=== PATIENT | female | born 1940 | race Caucasian/White ===

== ENCOUNTER → 2016-10-28 | Outpatient (CLI) | payer MEDICARE ==
[~2016-10-28] MED LIST: CALC600T21 PO; DETR1TAB4 PO; DORZ2SOL5 OP; FISH1000 PO; GLUC15002 PO; ROPI2TAB PO; VITA50003 PO; VITATAB22 PO
--- NOTE | 2016-10-28 17:35 | REPMRS ---
Patient History The patient states she has not had a clinical breast exam in over a year. Patient is postmenopausal. Family history of colorectal cancer in mother at age 59 and pancreatic cancer in mother. Digital Woman Screen Mammo: October 28, 2016 - Exam #: [id number] Bilateral CC and MLO view(s) were taken. Technologist: Nandini Bird, Technologist Prior study comparison: October 20, 2015, digital woman screen mammo performed at [facility] to [facility]. October 10, 2014, digital woman screen mammo performed at [facility]. October 07, 2013, digital woman screen mammo performed at [facility] to [facility]. FINDINGS: There are scattered fibroglandular densities. There has been no change in the appearance of the mammogram from the prior studies. There is a mild amount of scattered fibroglandular density which is fairly symmetric. There is no interval development of dominant mass, architectural distortion, or clustered microcalcification suggestive of malignancy. ASSESSMENT: BI-RADS/ACR category 1 mammogram. Negative. Recommendation Routine screening mammogram in 1 year (for women over age 40). This mammogram was interpreted with the aid of an FDA-approved computer-aided dectection system. Electronically Signed By: Fracisco Kat MD 10/28/16 [id number]
== END ==
LOC: M WHC 12:52
PROVIDERS: ATTEND Family Medicine
DX: Z12.31 Encounter for screening mammogram for malignant neoplasm of breast (principal)

== ENCOUNTER → 2017-04-03 | Outpatient (CLI) | payer MEDICARE ==
[~2017-04-03] MED LIST changes: -CALC600T21 PO; +CALC600T60 PO; +VITA1CAP40 PO; -VITA50003 PO
--- NOTE | 2017-04-04 09:10 | DEXA ---
AP SPINE L1 - L4 1.193 0.0 1.8 LT FEMUR TOTAL 0.827 -1.4 0.5 RT FEMUR TOTAL 0.859 -1.2 0.7 TOTAL BODY TOTAL OTHER DUAL FEMUR FRAX* ASSESSMENT Risk factors: Not performed. 10 year probability of fracture Major osteoporotic fracture % Hip fracture % COMMENTS: Normal bone densitometry of the spine. There is low bone density of the hips. The density of the spine has increased 4.1% since the initial exam on 2000. The spine density has increased 2.5% since the most recent exam on 10/07/2013. The density of the left hip has decreased 16.6% since the initial exam on 2000. The density of the left hip has decreased 0.7% since the most recent exam on . The density of the right hip has decreased 12.7% since the initial exam on 10/23. The density of the right hip has decreased 0.5% since the most recent exam on . FOLLOW-UP: Recommendation for the next bone density exam: 2 years. JUNIORD
== END ==
LOC: M WHC 08:56
PROVIDERS: ATTEND Family Medicine
DX: M85.80 Other specified disorders of bone density and structure, unspecified site (principal); M81.0 Age-related osteoporosis without current pathological fracture

== ENCOUNTER → 2017-11-07 | Outpatient (CLI) | payer MEDICARE | LOC: M WHC 14:31 | DX: Z12.31 Encounter for screening mammogram for malignant neoplasm of breast (principal) | CPT/HCPCS: 77067 ==

== ENCOUNTER → 2018-12-13 | Outpatient (CLI) | payer MEDICARE ==
[~2018-12-13] MED LIST changes: -DETR1TAB4 PO; +DETR1TAB5 PO; -VITA1CAP40 PO; +VITA50005 PO
--- NOTE | 2018-12-13 09:21 | REPMRS ---
Patient History The patient states she has not had a clinical breast exam in over a year. Family history of pancreatic cancer and colorectal cancer at age 59 in mother. 3D TOMOSYNTHESIS WAS PERFORMED. Digital Woman Screen Mammo: December 13, 2018 - Exam #: [id number] Bilateral CC and MLO view(s) were taken. Technologist: Cherry Sher, Technologist Prior study comparison: November 07, 2017, digital woman screen mammo performed at [facility]. October 28, 2016, digital woman screen mammo performed at [facility] to [facility]. FINDINGS: There are scattered fibroglandular densities. There has been no change in the appearance of the mammogram from the prior studies. There is a mild amount of residual fibroglandular tissue which is fairly symmetric. There is no interval development of dominant mass, architectural distortion, or clustered microcalcification suggestive of malignancy. Assessment: BI-RADS/ACR category 1 mammogram. Negative Mammogram. Recommendation Routine screening mammogram in 1 year (for women over age 40). This mammogram was interpreted with the aid of an FDA-approved computer-aided dectection system. Electronically Signed By: yCrus Dhaliwal MD 12/13/18 [id number]
== END ==
LOC: M WHC 06:46
PROVIDERS: ATTEND Family Medicine
DX: Z12.31 Encounter for screening mammogram for malignant neoplasm of breast (principal)

== ENCOUNTER 2019-03-10 19:46 | Observation (INO) | payer MEDICARE ==
[~2019-03-10] VITALS: Ht 152.4 cm; Wt 57.5 kg
[2019-03-10 20:10] LABS: BASO % 0.6 % (0.0-1.0); EOS # 0.2 10^3/uL (0.0-0.50); EOS % 2.2 % (0.0-3.0); HEMATOCRIT 45.3 % (36.0-47.0); HEMOGLOBIN 15.1 g/dl (12.0-15.5); LYMPH # 1.9 10^3/uL (1.5-4.5); LYMPH % 26.3 % (24.0-44.0); MEAN CORPUSCULAR HEMOGLOBIN 34.6 pg (27.0-33.0); MEAN CORPUSCULAR HGB CONC 33.3 g/dl (32.0-36.5); MEAN CORPUSCULAR VOLUME 103.7 fl (80.0-96.0); MONO # 0.6 10^3/uL (0.0-0.8); MONO % 7.9 % (0.0-5.0); NEUTROPHILS # 4.5 10^3/uL (1.8-7.7); NEUTROPHILS % 62.7 % (36.0-66.0); PLATELET COUNT, AUTOMATED 156 10^3/uL (150-450); RED BLOOD COUNT 4.37 10^6/uL (4.00-5.40); WHITE BLOOD COUNT 7.2 10^3/uL (4.0-10.0)
[2019-03-10 20:20] LABS: INR 0.93; PROTHROMBIN TIME 12.2 SECONDS (11.8-14.0)
[2019-03-10 20:33] LABS: BLOOD UREA NITROGEN 20 MG/DL (7-18); CALCIUM LEVEL 8.6 MG/DL (8.8-10.2); CARBON DIOXIDE LEVEL 27 MEQ/L (21-32); CHLORIDE LEVEL 106 MEQ/L (98-107); CK-MB VALUE MASS 7.9 NG/ML (<3.6); CPK CREATINE PHOSPHOKINASE 146 U/L (26-192); CREATININE FOR GFR 0.79 MG/DL (0.55-1.30); GLOMERULAR FILTRATION RATE > 60.0 (>32); GLUCOSE, FASTING 99 MG/DL (70-100); MB/CK RELATIVE INDEX 5.41 (< OR =4); POTASSIUM SERUM 4.1 MEQ/L (3.5-5.1); SODIUM LEVEL 141 MEQ/L (136-145); TROPONIN I < 0.02 NG/ML (< 0.10)
[2019-03-10] MEDS: LATANOPROST 0.005% OPHTH SOLN 2.5 ML OU SCH (21:00)
[2019-03-10 21:12] LABS: ALBUMIN 3.7 GM/DL (3.2-5.2); ALT/SGPT 39 U/L (12-78); BILIRUBIN,DIRECT 0.3 MG/DL (0.0-0.2); C REACTIVE PROTEIN QUANTITATIV < 0.30 MG/DL (0.00-0.30); ETHYL ALCOHOL (ETHANOL) 0.153 % (0.000-0.010); MAGNESIUM LEVEL 2.3 MG/DL (1.8-2.4); TOTAL PROTEIN 6.9 GM/DL (6.4-8.2)
--- NOTE | 2019-03-10 21:54 | REPVR ---
EXAM: CT Head Without Contrast EXAM DATE/TIME: 03/10/2019 8:49 PM CLINICAL HISTORY: 78 years old, female; Syncope and collapse; Additional info: Syncope, fall TECHNIQUE: Imaging protocol: Computed tomography images of the head without contrast. Radiation optimization: All CT scans at this facility use at least one of these dose optimization techniques: automated exposure control; mA and/or kV adjustment per patient size (includes targeted exams where dose is matched to clinical indication); or iterative reconstruction. COMPARISON: No relevant prior studies available. FINDINGS: Brain: No acute intracranial hemorrhage or mass effect. No discrete geographic area of hypoattenuation to suggest large vessel territorial infarct identified at this time. Mild to moderate generalized involutional and deep white matter microvascular ischemic changes. Cerebrovascular calcifications noted. Ventricles: Mild prominence of the ventricular system appears in proportion to the degree of volume loss. Bones/joints: No acute fracture. Sinuses: No fluid levels. Mastoid air cells: No mastoid effusion. Soft tissues: Unremarkable. IMPRESSION: No acute intracranial hemorrhage, mass effect or evidence of large vessel territorial infarction. Other chronic appearing changes as above. Electronically signed by: Guru Ahmadi On 03/10/2019 21:54:03 PM
--- NOTE | 2019-03-10 22:00 | REPVR ---
EXAM: CT Cervical Spine Without Contrast EXAM DATE/TIME: 03/10/2019 8:49 PM CLINICAL HISTORY: 78 years old, female; Other: Syncope; Additional info: Syncope, fall TECHNIQUE: Imaging protocol: Computed tomography images of the cervical spine without contrast. Coronal and sagittal reformatted images were created and reviewed. Radiation optimization: All CT scans at this facility use at least one of these dose optimization techniques: automated exposure control; mA and/or kV adjustment per patient size (includes targeted exams where dose is matched to clinical indication); or iterative reconstruction. COMPARISON: No relevant prior studies available. FINDINGS: Vertebrae: No grossly displaced fractures or subluxations. Advanced multilevel degenerative changes characterized by varying degrees of disc space narrowing/desiccation, endplate osteophytosis and facet hypertrophy. This is most predominant at C5-C6 where there is near complete vertebral body fusion. Discs/Spinal canal/Neural foramina: Narrowing of the bony spinal canal at C5-C6 and C6-C7 due to disc osteophyte complex formation. Soft tissues: Unremarkable. Lungs: Emphysematous changes bilaterally. IMPRESSION: No grossly displaced fractures or subluxations. Advanced multilevel degenerative changes. Electronically signed by: Guru Ahmadi On 03/10/2019 22:00:38 PM
--- NOTE | 2019-03-10 22:28 | HPEPDOC ---
[facility] Medical History & Physical Date of Admission Mar 10, 2019 Date of Service: Mar 10, 2019 Primary Care Physician: MIGDALIA POZO M.D. Attending Physician: CARLOS SUMNER MD History and Physical TIME OF SERVICE: Time of service 10:45 PM CHIEF COMPLAINT: Fall HISTORY OF PRESENT ILLNESS: This is a 78-year-old female who presents after falling and passing out at around 6 PM this evening. She just finished cooking dinner and was getting ready to eat. Prior to that, she only ate breakfast and had a busy day running several errands. She is not sure if she hit her head when she fell, and is not sure how long she lost consciousness for. She denies having prodromal chest pain, denies having dyspnea, denies feeling dizzy, denies having fevers, denies having chills, denies having abdominal pain, denies having urinary frequency, and denies having urinary incontinence. Her only complaint was of left arm pain. During the physical exam she reported feeling dizzy, her blood pressure was 59/37. Per Dr. Anne orthostats were negative, and Imaging studies so far were were only remarkable for a fractured the left clavicle. 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 Denies a personal history of diabetes, CVA, or hypertension SOCIAL HISTORY: Denies Smoking Drinks alcohol occasionally FAMILY HISTORY: Colon cancer. Pancreatic cancer Hypertension ALLERGIES: Please see below. HOME MEDICATIONS: Please see below. PHYSICAL EXAMINATION: VITAL SIGNS: Please see below. GENERAL APPEARANCE: Well-nourished, well-developed, not in apparent distress HEENT: Normocephalic, atraumatic, mucous members moist and pink CARDIOVASCULAR: Regular rate and rhythm. No murmurs, rubs or gallops LUNGS: Good auscultation bilaterally on room air ABDOMEN: Hypoactive bowel sounds, soft and nontender on palpation MUSCULOSKELETAL: Age of motion intact in all 3 extremities , the left arm is in a sling NEUROLOGICAL: Cranial nerves II-12 are grossly intact. Speech is not dysarthric PSYCHIATRIC: Alert and oriented to person, place and time, able to understand a nd follow commands LABORATORY DATA: See below. IMAGING: CT of the head unremarkable. CT of the cervical spine unremarkable. Chest x-ray report pending... Shoulder x-ray report pending MICROBIOLOGY: Please see below. ASSESSMENT: Zaida is an 78-year-old female the past medical history of [place] Shafer syndrome, restless leg syndrome and overactive bladder who will be admitted for evaluation of syncope. PLAN: 1. Syncope Likely multifactorial due to drinking ethanol, and dehydration in the setting of not eating or drinking fluids during the day. Orthostats done the ED were negative, but during the exam the patient reported feeling dizzy at the time her blood pressure was 59/37 (this was repeated 2x) w a HR in the 50s. Prior to that her blood pressure was 175/77. Troponin and CT head unrevealing Plan: Admit to medical floor/Telemetry / 1.5 L NS bolus right now / follow-up orthostats every 4H /follow-up MRI of the brain and carotid US /fall precautions 2. Closed fracture of the left clavicle. Plan: Sling/Tylenol for pain control. 4 Uncontrolled hypertension Plan: Follow-up vitals of still elevated, will start amlodipine 5. Restless leg syndrome Plan: continue home meds DVT prophylaxis with SDCs Disposition pending clinical course Vital Signs Vital Signs Date Time Temp Pulse Resp B/P (MAP) Pulse Ox O2 Delivery O2 Flow Rate FiO2 03/10/19 21:19 68 18 163/77 (105) 99 Room Air 03/10/19 19:54 96.0 Laboratory Data Labs 24H Laboratory Tests 2 03/10/19 20:02: Immature Granulocyte % (Auto) 0.3, White Blood Count 7.2, Red Blood Count 4.37, Hemoglobin 15.1, Hematocrit 45.3, Mean Corpuscular Volume 103.7H, Mean Corpuscular Hemoglobin 34.6H, Mean Corpuscular Hemoglobin Concent 33.3, Red Cell Distribution Width 12.1, Platelet Count 156, Neutrophils (%) (Auto) 62.7, Lymphocytes (%) (Auto) 26.3, Monocytes (%) (Auto) 7.9H, Eosinophils (%) (Auto) 2.2, Basophils (%) (Auto) 0.6, Neutrophils # (Auto) 4.5, Lymphocytes # (Auto) 1.9, Monocytes # (Auto) 0.6, Eosinophils # (Auto) 0.2, Basophils # (Auto) 0.0, Nucleated Red Blood Cells % (auto) 0.0, Prothrombin Time 12.2, Prothromb Time International Ratio 0.93, Anion Gap 8, Glomerular Filtration Rate > 60.0, Calcium Level 8.6L, Magnesium Level 2.3, Aspartate Amino Transf (AST/SGOT) 36, Alanine Aminotransferase (ALT/SGPT) 39, Alkaline Phosphatase 79, Total Bilirubin 1.0, Direct Bilirubin 0.3H, Total Creatine Kinase 146, Creatine Kinase MB 7.9H, Creatine Kinase MB Relative Index 5.41H, Troponin I < 0.02, C-Reactive Protein, Quantitative < 0.30, Total Protein 6.9, Albumin 3.7, Albumin/Globulin Ratio 1.16, Thyroid Stimulating Hormone (TSH) 1.820, Ethyl Alcohol Level 0.153H CBC/BMP Laboratory Tests 03/10/19 20:02 Red Blood Count 4.37, Mean Corpuscular Volume 103.7 H, Mean Corpuscular Hemoglobin 34.6 H, Mean Corpuscular Hemoglobin Concent 33.3, Red Cell Distribution Width 12.1, Neutrophils (%) (Auto) 62.7, Lymphocytes (%) (Auto) 26.3, Monocytes (%) (Auto) 7.9 H, Eosinophils (%) (Auto) 2.2, Basophils (%) (Auto) 0.6, Neutrophils # (Auto) 4.5, Lymphocytes # (Auto) 1.9, Monocytes # (Auto) 0.6, Eosinophils # (Auto) 0.2, Basophils # (Auto) 0.0 Home Medications Scheduled Ascorbic Acid (Vitamin C) 100 Mg Tablet, 100 MG PO DAILY Atorvastatin Calcium (Atorvastatin Calcium) 10 Mg Tablet, 10 MG PO 4XWK MONDAY, MONDAY, MONDAY, MONDAY Calcium Citrate/Vitamin D3 (Citracal + D Maximum Caplet) 1 Each Tablet, 1 TAB PO DAILY Dorzolamide HCl/Timolol Maleat (Cosopt Eye Drops) 10 Ml Drops, 1 DROP OU BID Glucosamine/Chondr Boss A Sod (Cidaflex Tablet) 1 Each Tablet, 1 TAB PO DAILY Latanoprost (Xalatan) 0.005% 2.5ML Drops, 1 DROP OU QHS Multivitamin (Multivitamins) 1 Each Capsule, 1 CAP PO DAILY [place]-3S/Dha/Epa/Fish Oil/D3 (Fish Oil-Vit D3 Softgel) 1 Each Capsule, 1 CAP PO DAILY Oxybutynin Chloride (Oxybutynin Chloride) 5 Mg Tablet, 5 MG PO BID Ropinirole HCl (Ropinirole HCl) 2 Mg Tablet, 2 MG PO QPM Ubidecarenone (Co Q-10) 200 Mg Capsule, 200 MG PO QPM Allergies Coded Allergies: No Known Allergies (Unverified , 03/10/19) A-FIB/CHADSVASC A-FIB History Current/History of A-Fib/PAF?: No Current PO Anticoag Therapy: No CARLOS SUMNER MD Mar 10, 2019 22:28
[2019-03-10] MEDS ORDERED: CIDA500T2 PO (22:45)
[2019-03-10] MEDS ORDERED: FISHCAP5 PO (22:45)
[2019-03-10] MEDS ORDERED: ATOR1TAB19 PO (22:45)
[2019-03-10] MEDS ORDERED: XALA0.007 OU (22:45)
[2019-03-10] MEDS ORDERED: IBUPROFEN 400 MG TAB PO ONE (22:45)
[2019-03-10] MEDS ORDERED: CO Q200C10 PO (22:45)
[2019-03-10] MEDS ORDERED: MULTCAP PO (22:45)
[2019-03-10] MEDS ORDERED: ROPI2TAB PO (22:45)
[2019-03-10] MEDS ORDERED: VITA100T59 PO (22:45)
[2019-03-10] MEDS ORDERED: OXYB5TAB10 PO (22:45)
[2019-03-10] MEDS ORDERED: COSO1SOL3 OU (22:45)
[2019-03-10] MEDS ORDERED: CITRTAB18 PO (22:45)
[2019-03-10] MEDS: ACETAMINOPHEN 650MG ER TAB (TYLENOL ARTHRITIS) PO SCH (23:30)
[2019-03-10] MEDS ORDERED: NS 500 ML IV ONE (23:30)
[2019-03-10] MEDS ORDERED: NS 1,000 ML IV ONE (23:30)
--- NOTE | 2019-03-11 02:10 | REPVR ---
EXAM: US Duplex Bilateral Extracranial Arteries EXAM DATE/TIME: 03/11/2019 1:04 AM CLINICAL HISTORY: 78 years old, female; Syncope and collapse TECHNIQUE: Imaging protocol: Real-time Duplex ultrasound scan of the Bilateral carotid and vertebral arteries combining elena scale, color Doppler and spectral waveform analysis. COMPARISON: CT Head without contrast 03/10/2019 8:48 PM FINDINGS: Right common carotid artery: Unremarkable. No occlusion or stenosis. Waveforms are normal. Peak systolic velocity in the right CCA is 179 cm/s. Right internal carotid artery: No occlusion or stenosis. Waveforms are normal. Peak systolic velocity is 56 cm/s. Mild hypoechoic plaque in the carotid bulb. Right ICA/CCA ratio: Within normal limits. 0.31. Right external carotid artery: No stenosis in the origin. Right vertebral artery: Unremarkable. Antegrade flow Left common carotid artery: Unremarkable. No occlusion or stenosis. Waveforms are normal. Peak systolic velocity is 79 m/s. Left internal carotid artery: No occlusion or stenosis. Waveforms are normal. Peak systolic velocity is 50 cm/s. Mild hypoechoic plaque in the carotid bulb. Left ICA/CCA ratio: Within normal limits. 0.63. Left external carotid artery: No stenosis in the origin. Left vertebral artery: Unremarkable. Antegrade flow. IMPRESSION: No carotid arterial stenosis. COMMENT: Carotid Stenosis Reference using SRU criteria: Mild: less than 50% stenosis. ICA PSV is less than 125 cm/second and plaque or intimal thickening is visible. Moderate: 50-69% stenosis. ICA PSV is 125 to 230 cm/second and plaque is visible. Severe: 70-94% stenosis. ICA PSV is more than 230 cm/second and visible plaque and lumen narrowing are seen. Near occlusion: 95-99% stenosis. ICA PSV is variable and significant plaque and luminal narrowing are seen. Occluded: 100% stenosis. No flow identified. Electronically signed by: Zenobia Mackenzie On 03/11/2019 02:09:35 AM
--- NOTE | 2019-03-11 07:01 | REP ---
Left shoulder three views: There is a compression fracture of the distal clavicle with diastases of the fracture fragments. There is no dislocation. Mineralization is normal. There are no calcifications or foreign bodies. Impression: Distal clavicle fracture as described. Electronically Signed by Cyrus Anderson MD 03/11/2019 06:52 A
--- NOTE | 2019-03-11 07:04 | REP ---
Portable chest, 09:10 p.m., single frontal view: There are no comparisons. There are no focal infiltrates. There are no pleural effusions. Lung matute otherwise clear. Cardiac size is upper normal. The david, mediastinum, skeletal structures are unremarkable except for a fracture of the distal left clavicle. Impression: Distal left clavicle fracture, otherwise negative portable chest. Electronically Signed by Cyrus Anderson MD 03/11/2019 06:55 A
[2019-03-11 07:14] LABS: HEMOGLOBIN 14.4 g/dl (12.0-15.5); MEAN CORPUSCULAR HEMOGLOBIN 35.3 pg (27.0-33.0); MEAN CORPUSCULAR HGB CONC 34.3 g/dl (32.0-36.5); MEAN CORPUSCULAR VOLUME 102.9 fl (80.0-96.0); PLATELET COUNT, AUTOMATED 142 10^3/uL (150-450); RED BLOOD COUNT 4.08 10^6/uL (4.00-5.40); WHITE BLOOD COUNT 8.3 10^3/uL (4.0-10.0)
[2019-03-11 07:41] LABS: BLOOD UREA NITROGEN 18 MG/DL (7-18); CALCIUM LEVEL 7.9 MG/DL (8.8-10.2); CARBON DIOXIDE LEVEL 24 MEQ/L (21-32); CHLORIDE LEVEL 108 MEQ/L (98-107); CREATININE FOR GFR 0.81 MG/DL (0.55-1.30); GLOMERULAR FILTRATION RATE > 60.0 (>32); GLUCOSE, FASTING 111 MG/DL (70-100); POTASSIUM SERUM 4.1 MEQ/L (3.5-5.1); SODIUM LEVEL 140 MEQ/L (136-145)
[2019-03-11] MEDS: oxyBUTYnin 5 MG TAB PO SCH ×3 (10:18→21:51)
[2019-03-11] MEDS: COSOPT OCUMETER PLUS 10ML (DORZOLAMIDE/TIMOLOL) OU SCH ×2 (10:18→21:53)
--- NOTE | 2019-03-11 13:30 | REPVR ---
EXAM: MR Angiogram Head Without Contrast, Arteries EXAM DATE/TIME: 03/11/2019 11:24 AM CLINICAL HISTORY: 78 years old, female; Syncope and collapse TECHNIQUE: Imaging protocol: MR angiogram head without contrast. Exam focused on the arteries. COMPARISON: CT Head without contrast 03/10/2019 8:48 PM FINDINGS: Right internal carotid artery: Unremarkable. Intracranial segment is patent with no significant stenosis. No aneurysm. Right anterior cerebral artery: Unremarkable. No occlusion or significant stenosis. No aneurysm. Right middle cerebral artery: Unremarkable. No occlusion or significant stenosis. No aneurysm. Right posterior cerebral artery: Unremarkable. No occlusion or significant stenosis. No aneurysm. Right vertebral artery: Unremarkable. No occlusion or significant stenosis. No aneurysm. Left internal carotid artery: Unremarkable. Intracranial segment is patent with no significant stenosis. No aneurysm. Left anterior cerebral artery: Unremarkable. No occlusion or significant stenosis. No aneurysm. Left middle cerebral artery: Unremarkable. No occlusion or significant stenosis. No aneurysm. Left posterior cerebral artery: Unremarkable. No occlusion or significant stenosis. No aneurysm. Left vertebral artery: Unremarkable. No occlusion or significant stenosis. No aneurysm. Basilar artery: Unremarkable. No occlusion or significant stenosis. No aneurysm. IMPRESSION: No occlusion, significant stenosis or aneurysm identified in the anterior or posterior circulation. Electronically signed by: Rodri Adan On 03/11/2019 13:30:18 PM
[2019-03-11] MEDS: ACETAMINOPHEN 650MG ER TAB (TYLENOL ARTHRITIS) PO SCH (14:56)
[2019-03-11 15:20] VITALS: BP 149/65
[2019-03-11] MEDS: ACETAMINOPHEN TAB 650MG DOSE (2X325MG) PO PRN ×2 (17:39→21:52)
[2019-03-11 18:00] VITALS: BP_SYST 139; BP_SYST 140; BP_SYST 145; BP_DIAS 67; BP_DIAS 72; BP_DIAS 76
[2019-03-11] MEDS ORDERED: ATORVASTATIN 10 MG TAB PO SCH (18:00)
--- NOTE | 2019-03-11 19:43 | IPNPDOC ---
Text Note Date of Service The patient was seen on 03/11/19. NOTE S: patient with no further syncope episodes. she is independent at home and daughter is occupational therapist. Patient states arm sling (not clavicle immobilizer) was making things worse. states no clavicle pain with immobilization, no dizziness no CP. no SOB O: vitals as below = no further hypotensive episodes General: pleasant NAD AAOx3 HRRR LCTA A/P: 1. Syncope Likely multifactorial due to drinking ethanol, and dehydration in the setting of not eating or drinking fluids during the day. Orthostats done the ED were negative, but during the exam the patient reported feeling dizzy at the time her blood pressure was 59/37 (this was repeated 2x) w a HR in the 50s. Prior to that her blood pressure was 175/77. Troponin and CT head unrevealing IVF, negative MRI/MRA 2. Closed fracture of the left clavicle. Plan: Sling/Tylenol for pain control. 3 Uncontrolled hypertension- started amolipine - monitor for hypotension/fall 4. Restless leg syndrome Plan: continue home meds DVT prophylaxis with SCD VS,Fishbone, I+O VS, Fishbone, I+O Laboratory Tests 03/10/19 20:02 Red Blood Count 4.37, Mean Corpuscular Volume 103.7 H, Mean Corpuscular Hemoglobin 34.6 H, Mean Corpuscular Hemoglobin Concent 33.3, Red Cell Distribution Width 12.1, Neutrophils (%) (Auto) 62.7, Lymphocytes (%) (Auto) 26.3, Monocytes (%) (Auto) 7.9 H, Eosinophils (%) (Auto) 2.2, Basophils (%) (Auto) 0.6, Neutrophils # (Auto) 4.5, Lymphocytes # (Auto) 1.9, Monocytes # (Auto) 0.6, Eosinophils # (Auto) 0.2, Basophils # (Auto) 0.0 03/11/19 06:45 Red Blood Count 4.08, Mean Corpuscular Volume 102.9 H, Mean Corpuscular Hemoglobin 35.3 H, Mean Corpuscular Hemoglobin Concent 34.3, Red Cell Distribution Width 12.0, Calcium Level 7.9 L Vital Signs Date Time Temp Pulse Resp B/P (MAP) Pulse Ox O2 Delivery O2 Flow Rate FiO2 03/11/19 18:00 72 140/67 (91) 69 139/72 (94) 80 145/76 (99) 03/11/19 15:20 97.5 15 94 03/11/19 12:46 Room Air 03/11/19 02:59 2.0 I&O- Last 24 Hours up to 6 AM 03/11/19 06:00 Intake Total 1500 ml Output Total 400 ml Balance 1100 ml SUMMER ANDRADE DO Mar 11, 2019 19:43
[2019-03-11] MEDS ORDERED: rOPINIRole 1MG TAB PO SCH (21:00)
[2019-03-11] MEDS: LATANOPROST 0.005% OPHTH SOLN 2.5 ML OU SCH (21:00)
[2019-03-11 22:00] VITALS: BP 145/102
[2019-03-11 22:20] VITALS: BP_SYST 145; BP_SYST 147; BP_SYST 148; BP_DIAS 81; BP_DIAS 83; BP_DIAS 90
[2019-03-12 02:00] VITALS: BP_SYST 118; BP_SYST 123; BP_SYST 142; BP_DIAS 63; BP_DIAS 65; BP_DIAS 70; BP_DIAS 72
[2019-03-12 06:00] VITALS: BP 111/64
[2019-03-12 06:30] VITALS: BP_SYST 141; BP_SYST 142; BP_DIAS 69; BP_DIAS 82
[2019-03-12] MEDS: COSOPT OCUMETER PLUS 10ML (DORZOLAMIDE/TIMOLOL) OU SCH (08:12)
[2019-03-12] MEDS: ACETAMINOPHEN TAB 650MG DOSE (2X325MG) PO PRN (08:12)
[2019-03-12] MEDS: oxyBUTYnin 5 MG TAB PO SCH (08:12)
[2019-03-12 10:00] VITALS: BP_SYST 106; BP_SYST 143; BP_DIAS 59; BP_DIAS 63
--- NOTE | 2019-03-12 10:10 | ECGEPIP ---
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
--- NOTE | 2019-03-12 10:13 | ECGEPIP ---
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
[2019-03-12 11:00] VITALS: BP_SYST 142; BP_SYST 144; BP_SYST 147; BP_DIAS 73; BP_DIAS 74
--- NOTE | 2019-03-12 12:05 | DS.PDOC ---
Discharge Summary General Date of Admission Mar 10, 2019 at 19:47 Date of Discharge 03/12/19 Discharge Summary PROCEDURES PERFORMED DURING STAY: None. ADMITTING DIAGNOSES: 1. Syncope, closed left clavicular fracture DISCHARGE DIAGNOSES: 1. Orthostatic hypotension, both left clavicular fracture COMPLICATIONS/CHIEF COMPLAINT: Closed Left Clavicular Fracture,Syncope. HISTORY OF PRESENT ILLNESS: 78-year-old female the past medical history of Rodolfo Shafer syndrome, restless leg syndrome and overactive bladder who presents after falling and passing out at around 6 PM this evening. She just finished cooking dinner and was getting ready to eat. Prior to that, she only ate breakfast and had a busy day running several errands. She is not sure if she hit her head when she fell, and is not sure how long she lost consciousness for. She denies having prodromal chest pain, denies having dyspnea, denies feeling dizzy, denies having fevers, denies having chills, denies having abdominal pain, denies having urinary frequency, and denies having urinary incontinence. Her only complaint was of left arm pain. During the physical exam she reported feeling dizzy, her blood pressure was 59/37. HOSPITAL COURSE: Patient was admitted for syncope. She was found to have orthostatic hypotension and she was inebriated. Patient underwent MRI of the brain which showed No occlusion, significant stenosis or aneurysm identified in the anterior or posterior circulation. US carotid: No carotid arterial stenosis. CXR showed Distal left clavicle fracture. CT of the cervical spine was negative for any acute fractures. Patient was given IV fluids and her orthostatics were repeated every 6 hours. Patient's blood pressure became normal and she stopped having symptoms off dizziness. Patient walked around without any difficulty. Telemetry was uneventful. She is medically stable to be discharged and follow-up with PCP and orthopedist as an outpatient. Patient was counseled against alcohol abuse, alcohol cessation counseling was also done. Patient verbalized understanding and patient's daughter was present at bedside as well DISCHARGE MEDICATIONS: Please see below. ALLERGIES: Please see below. PHYSICAL EXAMINATION ON DISCHARGE: VITAL SIGNS: Please see below. General - NAD, sitting up in bed, well groomed and in nightgown Eyes - PERRLA, EOM intact Neck - No noticeable or palpable swelling, redness or rash around throat or on face Lymph Nodes - No lymphadenopathy Cardiovascular - RRR no m/r/g, no JVD, no carotid bruits Lungs - Clear to auscltation, no use of acessory muscles, no crackles or wheezes. Skin - No rashes, skin warm and dry, no erythematous areas Abdomen - Normal bowel sounds, abdomen soft and nontender Extremeties - No edema, cyanosis or clubbing Musculo Skeletal - 5/5 strength, normal range of motion, no swollen or erythematous joints. Sling in place for clavicular fracture Neurological Alert and oriented x 3, CN 2-12 grossly intact. LABORATORY DATA: Please see below. IMAGING: PROGNOSIS: ACTIVITY: As tolerated. DIET: DISCHARGE PLAN: DISPOSITION: . DISCHARGE INSTRUCTIONS: 1. . Follow-up with PCP and orthopedist as an outpatient within a week ITEMS TO FOLLOWUP ON ON OUTPATIENT: 1. . DISCHARGE CONDITION: Stable. TIME SPENT ON DISCHARGE: Greater than 33 minutes. Vital Signs/I&Os Vital Signs Date Time Temp Pulse Resp B/P (MAP) Pulse Ox O2 Delivery O2 Flow Rate FiO2 03/12/19 11:00 68 142/74 (96) 61 144/73 (96) 70 147/74 (98) 03/12/19 10:00 97.8 18 93 03/11/19 12:46 Room Air 03/11/19 02:59 2.0 I&O- Last 24 Hours up to 6 AM 03/12/19 06:00 Intake Total 1500 ml Output Total 750 ml Balance 750 ml Discharge Medications Scheduled Ascorbic Acid (Vitamin C) 100 Mg Tablet, 100 MG PO DAILY, (Reported) Atorvastatin Calcium (Atorvastatin Calcium) 10 Mg Tablet, 10 MG PO 4XWK, (Reported) MONDAY, MONDAY, MONDAY, MONDAY Calcium Citrate/Vitamin D3 (Citracal + D Maximum Caplet) 1 Each Tablet, 1 TAB PO DAILY, (Reported) Dorzolamide HCl/Timolol Maleat (Cosopt Eye Drops) 10 Ml Drops, 1 DROP OU BID, (Reported) Glucosamine/Chondr Boss A Sod (Cidaflex Tablet) 1 Each Tablet, 1 TAB PO DAILY, (Reported) Latanoprost (Xalatan) 0.005% 2.5ML Drops, 1 DROP OU QHS, (Reported) Multivitamin (Multivitamins) 1 Each Capsule, 1 CAP PO DAILY, (Reported) Leland-3S/Dha/Epa/Fish Oil/D3 (Fish Oil-Vit D3 Softgel) 1 Each Capsule, 1 CAP PO DAILY, (Reported) Oxybutynin Chloride (Oxybutynin Chloride) 5 Mg Tablet, 5 MG PO BID, (Reported) Ropinirole HCl (Ropinirole HCl) 2 Mg Tablet, 2 MG PO QPM, (Reported) Ubidecarenone (Co Q-10) 200 Mg Capsule, 200 MG PO QPM, (Reported) Allergies Coded Allergies: No Known Allergies (Unverified , 03/10/19) GUNNER LAST MD Mar 12, 2019 12:05
--- NOTE | 2019-03-13 08:38 | ECHO ---
DATE OF STUDY: 03/12/2019 REFERRING PHYSICIAN: Dr. Belinda Mobley and Dr. Blanquita Goldman INDICATION: Syncope HEIGHT: 152 cm WEIGHT: 59 kg DIMENSIONS: IVS: 0.8 LV: 4.5 LVPW: 1.0 LA: 3.7 Aorta: 3.1 Mitral E wave velocity: 56 A wave: 61 E prime septal: 7.3 E prime lateral: 8.2 Left atrial volume index: 22 IVC: 1.9 FINDINGS: This study is of acceptable technical quality. The patient is in sinus rhythm with wide QRS complex. Left ventricle is normal size and has normal contractility, I estimate LVEF around 65-70%. No segmental wall motion abnormalities are appreciated. Right ventricle is normal size and systolic function. Both atria appear normal. All four cardiac valves were reasonably well seen and appear normal. No pericardial effusion is noted. Inferior vena cava is on upper limits of normal size but collapses appropriately with respiration indicative of likely normal central venous pressure. Aortic root, aortic arch and visualized segment of abdominal aorta all appear normal. Doppler interrogation of aortic valve reveals no stenosis and mild insufficiency. There is also mild mitral and tricuspid insufficiency. Calculated pulmonary artery pressure is in 30s corresponding to mild pulmonary hypertension. Trace pulmonic insufficiency is seen. Mitral inflow pattern and tissue Doppler imaging of mitral annulus reveals grade 1 diastolic dysfunction. CONCLUSIONS: 1. Study is of good technical quality. 2. Normal LV size with preserved LV systolic function and grade 1 diastolic dysfunction. 3. No hemodynamically significant valvular disease. 4. Likely normal central venous pressure and mild pulmonary hypertension. COMMENTS: Subacute bacterial endocarditis (SBE) prophylaxis is not recommended. The study does not provide obvious explanation for syncopal event.
== END 2019-03-12 14:06 | disposition home or self-care (01) ==
LOC: M ED 19:46 → EDBD 19:46 → M ED INP 19:47 → M MSPAV 03-11 15:17
PROVIDERS: ADMIT Internal Medicine; ATTEND Hospitalist
DX: R55 Syncope and collapse (principal); E86.0 Dehydration; I95.1 Orthostatic hypotension; S42.002A Fracture of unspecified part of left clavicle, initial encounter for closed fracture; W19.XXXA Unspecified fall, initial encounter; Y92.000 Kitchen of unspecified non-institutional (private) residence as the place of occurrence of the external cause; Y93.G3 Activity, cooking and baking; Y99.9 Unspecified external cause status; F10.10 Alcohol abuse, uncomplicated; Z79.899 Other long term (current) drug therapy; G25.81 Restless legs syndrome; N32.81 Overactive bladder
CPT/HCPCS: 36415; 70450; 70544; 71045; 72125; 73030; 80048; 80076; 82550; 82553; 83735; 84443; 84484; 85025; 85027; 85610; 86140; 93005; 93306; 93880; 96360; 96361; 99285; G0378; G0480

== ENCOUNTER → 2019-08-12 | Outpatient (CLI) | payer MEDICARE ==
[~2019-08-12] MED LIST changes: +ATOR1TAB19 PO; +CIDA500T2 PO; +CITRTAB18 PO; +CO Q200C10 PO; +COSO1SOL3 OU; +FISHCAP5 PO; +MULTCAP PO; +OXYB5TAB10 PO; +VITA100T59 PO; +XALA0.007 OU
== END ==
LOC: M WHC 11:11
PROVIDERS: ATTEND Family Medicine
DX: M81.0 Age-related osteoporosis without current pathological fracture (principal)

== ENCOUNTER → 2020-02-05 | Outpatient (CLI) | payer MEDICARE ==
[~2020-02-05] MED LIST changes: -ROPI2TAB PO; +ROPI2TAB3 PO
--- NOTE | 2020-02-05 10:32 | REPMRS ---
Patient History The patient states she has not had a clinical breast exam in over a year. Family history of pancreatic cancer and colorectal cancer at age 59 in mother. 3D TOMOSYNTHESIS WAS PERFORMED. [facility] for [facility]%. PRAKASH Mahajan. Digital Woman Screen Mammo: February 05, 2020 - Exam #: [id number] Bilateral CC and MLO view(s) were taken. Technologist: Reema Costa, Technologist Prior study comparison: December 13, 2018, bilateral digital woman screen mammo performed at [facility]. November 07, 2017, digital woman screen mammo performed at [facility]. FINDINGS: There are scattered fibroglandular densities. There has been no change in the appearance of the mammogram from the prior studies. There is a mild amount of residual fibroglandular tissue which is fairly symmetric. There is no interval development of dominant mass, architectural distortion, or clustered microcalcification suggestive of malignancy. Assessment: BI-RADS/ACR category 1 mammogram. Negative Mammogram. Recommendation Routine screening mammogram in 1 year (for women over age 40). This mammogram was interpreted with the aid of an FDA-approved computer-aided dectection system. Electronically Signed By: Cyrus Dhaliwal MD 02/05/20 [id number]
== END ==
LOC: M WHC 09:00
PROVIDERS: ATTEND Family Medicine
DX: Z12.31 Encounter for screening mammogram for malignant neoplasm of breast (principal); Z80.0 Family history of malignant neoplasm of digestive organs

== ENCOUNTER 2020-07-17 14:35 | Inpatient (IN) | payer MEDICARE ==
[~2020-07-17] VITALS: Ht 152.4 cm; Wt 58.3 kg
[2020-07-17 15:14] LABS: VENOUS HCO3 27.6 MEQ/L (23.0-27.0); VENOUS O2 SATURATION 58.4 % (60.0-80.0); VENOUS PARTIAL PRESSURE O2 30.9 mmHg (30.0-50.0); VENOUS PH 7.351 UNITS (7.330-7.430); VENOUS STANDARD HCO3 24.2 MEQ/L; VENOUS TOTAL CO2 29.2 MEQ/L (24.0-28.0)
[2020-07-17 15:20] LABS: BASO % 0.1 % (0.0-1.0); EOS % 0.1 % (0.0-3.0); HEMOGLOBIN 15.7 g/dl (12.0-15.5); LYMPH # 0.9 10^3/uL (1.5-5.0); LYMPH % 6.2 % (24.0-44.0); MEAN CORPUSCULAR HEMOGLOBIN 33.2 pg (27.0-33.0); MEAN CORPUSCULAR HGB CONC 32.7 g/dl (32.0-36.5); MEAN CORPUSCULAR VOLUME 101.5 fl (80.0-96.0); MONO # 1.2 10^3/uL (0.0-0.8); MONO % 8.4 % (0.0-5.0); NEUTROPHILS # 12.1 10^3/uL (1.5-8.5); NEUTROPHILS % 84.7 % (36.0-66.0); PLATELET COUNT, AUTOMATED 133 10^3/uL (150-450); RED BLOOD COUNT 4.73 10^6/uL (4.00-5.40); WHITE BLOOD COUNT 14.3 10^3/uL (4.0-10.0)
--- NOTE | 2020-07-17 15:53 | ECGEPIP ---
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
[2020-07-17 15:58] LABS: ALBUMIN 3.4 GM/DL (3.2-5.2); ALT/SGPT 36 U/L (12-78); BILIRUBIN,DIRECT 0.3 MG/DL (0.0-0.2); BILIRUBIN,TOTAL 1.6 MG/DL (0.2-1.0); BLOOD UREA NITROGEN 12 MG/DL (7-18); CALCIUM LEVEL 8.9 MG/DL (8.8-10.2); CARBON DIOXIDE LEVEL 28 MEQ/L (21-32); CHLORIDE LEVEL 107 MEQ/L (98-107); CK-MB VALUE MASS < 1.0 NG/ML (<3.6); CPK CREATINE PHOSPHOKINASE 73 U/L (26-192); CREATININE FOR GFR 0.84 MG/DL (0.55-1.30); GLOMERULAR FILTRATION RATE > 60.0 (>32); GLUCOSE, FASTING 118 MG/DL (70-100); LIPASE 61 U/L (73-393); MB/CK RELATIVE INDEX 1.37 (< OR =4); NT-PRO BNP 1041 PG/ML (<450); POTASSIUM SERUM 4.2 MEQ/L (3.5-5.1); SODIUM LEVEL 141 MEQ/L (136-145); TROPONIN I < 0.02 NG/ML (< 0.10)
[2020-07-17] MEDS ORDERED: ISOVUE-370 76% 100ML VIAL As Ordered ONE (16:48)
--- NOTE | 2020-07-17 17:06 | REP ---
INDICATION: CHEST PAIN COMPARISON: 03/10/2019 TECHNIQUE: Portable AP view of the chest FINDINGS: The mediastinum and cardiac silhouette are stable and within normal limits for portable technique. The lung matute demonstrate chronic changes and trace basilar atelectasis. No focal consolidation, effusion, or pneumothorax. Skeletal structures are intact. IMPRESSION: Chronic changes. Trace basilar atelectasis. <Electronically signed by Subhash Irizarry > 07/17/20 [id number]
--- NOTE | 2020-07-17 17:12 | REP ---
INDICATION: pleuritic CP, elev d-dimer, eval for PE COMPARISON: None. TECHNIQUE: Axial contrast enhanced images from the thoracic inlet to the upper abdomen using pulmonary embolus technique with multiplanar re-formations. 75 ml Isovue 370 intravenous contrast material administered without complication. This CT examination was performed using the following dose reduction techniques: Automated exposure control, adjustment of mA and/or kv according to the patient's size, and use of iterative reconstruction technique. FINDINGS: Satisfactory enhancement of the pulmonary vasculature is achieved and no filling defects are identified to suggest pulmonary embolus. Thoracic aorta demonstrates atherosclerotic changes without aneurysm or dissection. No cardiomegaly or pericardial effusion noted. The lung matute demonstrate chronic interstitial/emphysematous changes along with mild bibasilar atelectasis (left greater than right). No discrete focal consolidation. No adenopathy. No effusion. No pneumothorax. Tracheobronchial tree is patent. IMPRESSION: 1. No evidence for pulmonary embolus. 2. Chronic interstitial changes with mild superimposed basilar atelectasis. <Electronically signed by Subhash Irizarry > 07/17/20 [id number]
[2020-07-17] MEDS: METOPROLOL 5 MG/5 ML VIAL IV SCH ×3 (17:47→18:09)
[2020-07-17] MEDS ORDERED: ASPIRIN 81 MG CHEW TABLET PO ONE (18:15)
[2020-07-17] MEDS ORDERED: NS 500 ML IV ONE ×3 (18:15→20:30)
[2020-07-17] MEDS: ACETAMINOPHEN TAB 650MG DOSE (2X325MG) PO PRN (18:33)
--- NOTE | 2020-07-17 18:44 | ECGEPIP ---
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
[2020-07-17] MEDS ORDERED: NS 1,000 ML IV SCH (18:45)
[2020-07-17] MEDS ORDERED: THERTAB52 PO (18:53)
[2020-07-17] MEDS ORDERED: HEPARIN SOD (PORCINE) 5000UNITS/ML 1ML VIAL/SYRINGE IV ONE (19:00)
[2020-07-17] MEDS ORDERED: HEPARIN SOD (PORCINE) 5000UNITS/ML 1ML VIAL/SYRINGE IV PRN (19:00)
[2020-07-17 20:31] LABS: HEMATOCRIT 46.9 % (36.0-47.0); HEMOGLOBIN 15.1 g/dl (12.0-15.5); MEAN CORPUSCULAR HEMOGLOBIN 33.1 pg (27.0-33.0); MEAN CORPUSCULAR HGB CONC 32.2 g/dl (32.0-36.5); MEAN CORPUSCULAR VOLUME 102.9 fl (80.0-96.0); PLATELET COUNT, AUTOMATED 154 10^3/uL (150-450); RED BLOOD COUNT 4.56 10^6/uL (4.00-5.40); WHITE BLOOD COUNT 14.4 10^3/uL (4.0-10.0)
[2020-07-17] MEDS ORDERED: PIPERACILLIN/TAZOBACTAM SOD 4.5 GM in D5W MINI-BAG PLUS 50 ML IV STA (20:45)
[2020-07-17 21:35] VITALS: BP 98/60
[2020-07-17] MEDS ORDERED: DIGOXIN INJ 0.5 MG/2 ML AMP (J1160) IV SCH (22:00)
[2020-07-17] MEDS: HEPARIN DRIP 25,000 UNITS in IV 1 EA IV SCH (22:34)
[2020-07-17] MEDS ORDERED: PIPERACILLIN/TAZOBACTAM SOD 4.5 GM in D5W MINI-BAG PLUS 50 ML IV ONE (23:00)
[2020-07-17] MEDS: rOPINIRole 1MG TAB PO SCH (23:55)
[2020-07-18] VITALS: BP 92/58
[2020-07-18 04:00] VITALS: BP 104/69
[2020-07-18] MEDS: PIPERACILLIN/TAZOBACTAM SOD 3.375 GM in D5W MINI-BAG PLUS 50 ML IV SCH ×4 (05:18→23:50)
[2020-07-18 06:43] LABS: HEMATOCRIT 42.7 % (36.0-47.0); HEMOGLOBIN 13.6 g/dl (12.0-15.5); MEAN CORPUSCULAR HEMOGLOBIN 32.7 pg (27.0-33.0); MEAN CORPUSCULAR HGB CONC 31.9 g/dl (32.0-36.5); MEAN CORPUSCULAR VOLUME 102.6 fl (80.0-96.0); PLATELET COUNT, AUTOMATED 119 10^3/uL (150-450); RED BLOOD COUNT 4.16 10^6/uL (4.00-5.40); WHITE BLOOD COUNT 9.9 10^3/uL (4.0-10.0)
[2020-07-18 07:17] LABS: BLOOD UREA NITROGEN 11 MG/DL (7-18); CARBON DIOXIDE LEVEL 23 MEQ/L (21-32); CHLORIDE LEVEL 113 MEQ/L (98-107); CREATININE FOR GFR 0.75 MG/DL (0.55-1.30); FERRITIN 1881 NG/ML (8-252); GLOMERULAR FILTRATION RATE > 60.0 (>32); GLUCOSE, FASTING 111 MG/DL (70-100); IRON (FE) 36 UG/DL (50-170); MAGNESIUM LEVEL 2.1 MG/DL (1.8-2.4); PERCENT SATURATION 16.4 % (13.2-45.0); POTASSIUM SERUM 3.9 MEQ/L (3.5-5.1); SODIUM LEVEL 143 MEQ/L (136-145); TOTAL IRON BINDING CAPACITY 220 UG/DL (250-450)
[2020-07-18 08:00] VITALS: BP 111/68
--- NOTE | 2020-07-18 08:08 | HPEPDOC ---
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 She denies prior history of chest pain, a history of heart failure, known CAD or history of LE edema. She also denies any recent fever, chills, new cough, palpitations, abdominal pain, urinary frequency or dysuria. On presentation her vitals were wnl and she was saturating 95% on room air but d ecreased to 88% on ambulation. Work up was notable for leukocytosis to 14.3, Hgb 15.7, platelets 133, Na 141. K 4.2, Cr 0.84, LFTs wnl with a Tbili of 1.6 however, negative troponin, non ischemic EKG in sinus rhythm, elevated proBNP to 1041 and elevated D-dimer to 2599. Given the elevated d-dimer and exertional hypoxemia she had a CTA chest that did not reveal a PE or acute cardiopulmonary pathology showing only chronic interstitial changes while CXR was wnl. Respiratory panel was negative. While in the ED, she was noted to go into rapid Afib and was given metoprolol x 3 tg IV pushes without sustained effects and was switched to dilt 15mg IV x 1 with good effect. She has no history of Afib prior. Given the leukocytosis, rapid Afib I was suspicious of potential infection driving her new onset Afib and will draw BCx, UA with UCx and give her empiric zosyn overnight until infectious workup is complete. REVIEW OF SYSTEMS: 12 point review of systems negative except as listed in HPI PAST MEDICAL/ SURGICAL HISTORY: Restless leg syndrome Rodolfo Shafer syndrome Urinary incontinence/overactive bladder Glaucoma Post-cataract removal Status post total hysterectomy with salpingectomy. Denies a personal history of diabetes, CAD, CHF, CVA, or hypertension SOCIAL HISTORY: Denies Smoking Drinks alcohol occasionally Lives alone. Closest child is in [place]. The rest of her children are out of state. FAMILY HISTORY: Colon cancer. Pancreatic cancer Hypertension ALLERGIES: Please see below. HOME MEDICATIONS: Please see below. PHYSICAL EXAMINATION: VITAL SIGNS: Please see below. GENERAL APPEARANCE: Well-nourished, well-developed, not in apparent distress HEENT: Normocephalic, atraumatic, mucous members moist and pink CARDIOVASCULAR: Irregularly irregular, tachycardic. No murmurs noted LUNGS: Good auscultation bilaterally on room air ABDOMEN: Hypoactive bowel sounds, soft and nontender on palpation MUSCULOSKELETAL: Age of motion intact in all 3 extremities , the left arm is in a sling NEUROLOGICAL: Cranial nerves II-12 are grossly intact. Speech is not dysarthric PSYCHIATRIC: Alert and oriented to person, place and time, able to understand and follow commands LABORATORY DATA: Summarized above IMAGING: summarized above MICROBIOLOGY: Please see below. 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 PLAN: 1. New onset Afib with RVR: precipitant unclear at this time with no history of cardiac disease, no signs of ischemia, no PE, however with leukocytosis c/f infection driving arrythmia activity but structural disease worth investigating as well. -s/p metop x 3 IV pushes without effect -s/p dilt 15 IV x 1 with good effect. So will begin 30 PO Q6H of dilt -Telemetry -Currently getting total 1L NS bolus, and will start 100cc/hr for another 1L -f/u BCx, UA with UCx -empiric zosyn for now given +SIRS -heparin gtt -TTE Leukocytosis, tachycardia - +SIRS -CXR and CTA without acute cardiopulmonary disease noted -respiratory panel was negative -f/u BCx -f/u UA/UCx -will empirically cover with pip/tazo for now until UA and BCx return Restless leg syndrome -continue home ropinirole DVT prophylaxis with SDCs, TEDs and will start heparin gtt Disposition: expect >48hr stay Vital Signs Vital Signs Date Time Temp Pulse Resp B/P (MAP) Pulse Ox O2 Delivery O2 Flow Rate FiO2 07/17/20 14:46 98.4 93 18 161/71 (101) 95 Room Air Laboratory Data Labs 24H Laboratory Tests 2 07/17/20 15:07: D-Dimer, Quantitative 2599.40H, Anion Gap 6L, Glomerular Filtration Rate > 60.0, Calcium Level 8.9, Total Bilirubin 1.6H, Direct Bilirubin 0.3H, Aspartate Amino Transf (AST/SGOT) 35, Alanine Aminotransferase (ALT/SGPT) 36, Alkaline Phosphatase 88, Total Creatine Kinase 73, Creatine Kinase MB < 1.0, Creatine Kinase MB Relative Index 1.37, Troponin I < 0.02, ZU-Rjp-V-Type Natriuretic Peptide 1041H, Total Protein 7.0, Albumin 3.4, Albumin/Globulin Ratio 0.9L, Lipase 61L 07/17/20 15:08: Immature Granulocyte % (Auto) 0.5, Neutrophils (%) (Auto) 84.7H, Lymphocytes (%) (Auto) 6.2L, Monocytes (%) (Auto) 8.4H, Eosinophils (%) (Auto) 0.1, Basophils (%) (Auto) 0.1, Neutrophils # (Auto) 12.1H, Lymphocytes # (Auto) 0.9L, Monocytes # (Auto) 1.2H, Eosinophils # (Auto) 0.0, Basophils # (Auto) 0.0, Nucleated Red Blood Cells % (auto) 0.0, Blood Gas Bicarbonate Standard 24.2, Venous Blood pH 7.351, Venous Blood Partial Pressure CO2 51.0H, Venous Blood Partial Pressure O2 30.9, Venous Blood Total Carbon Dioxide 29.2H, Venous Blood HCO3 27.6H, Venous Blood Oxygen Saturation 58.4L, Venous Blood Base Excess 1.0 CBC/BMP Laboratory Tests 07/17/20 15:07 07/17/20 15:08 Microbiology Microbiology 07/17/20 Respiratory Virus Panel (PCR) (JONES) - Final, Complete 07/17/20 Blood Culture, Received Pending 07/17/20 Blood Culture, Received Pending Home Medications Scheduled Ascorbic Acid (Vitamin C) 100 Mg Tablet, 100 MG PO DAILY Atorvastatin Calcium (Atorvastatin Calcium) 10 Mg Tablet, 10 MG PO 4XWK AT BEDTIME MONDAY, MONDAY, MONDAY, MONDAY Calcium Citrate/Vitamin D3 (Citracal + D Maximum Caplet) 1 Each Tablet, 1 TAB PO DAILY Dorzolamide HCl/Timolol Maleat (Cosopt Eye Drops) 10 Ml Drops, 1 DROP OU BID Glucosamine/Chondr Boss A Sod (Cidaflex Tablet) 1 Each Tablet, 1 TAB PO DAILY Latanoprost (Xalatan) 0.005% 2.5ML Drops, 1 DROP OU QHS Multivitamin,Therapeutic (Thera-Tabs) 1 Each Tablet, 1 TAB PO DAILY Maud-3S/Dha/Epa/Fish Oil/D3 (Fish Oil-Vit D3 Softgel) 1 Each Capsule, 1 CAP PO DAILY Ropinirole HCl (Ropinirole HCl) 2 Mg Tablet, 2 MG PO QPM Ubidecarenone (Co Q-10) 200 Mg Capsule, 200 MG PO QPM Allergies Coded Allergies: No Known Allergies (Unverified , 03/10/19) A-FIB/CHADSVASC A-FIB History Current/History of A-Fib/PAF?: Yes Current PO Anticoag Therapy: No Age/Risk Factor Scoring CHADSVASC: CHADSVASC Response (Comments) Value Age Risk Factor Age >/= 75 years old 2 Gender Risk Factor Female 1 Hx of CHF No 0 Hx of HTN No 0 Hx of Stroke/TIA/or VTE No 0 Hx of Diabetes No 0 Hx of Vascular Disease No 0 Total 3 Treatment Treatment ordered: Heparin IV bridge Therapy TERRA LUTZ MD Jul 17, 2020 18:01
[2020-07-18] MEDS ORDERED: DIGOXIN INJ 0.5 MG/2 ML AMP (J1160) IV STA ×2 (08:39→11:19)
[2020-07-18] MEDS ORDERED: DIGOXIN INJ 0.5 MG/2 ML AMP (J1160) IV SCH (09:00)
[2020-07-18] MEDS: ACETAMINOPHEN TAB 650MG DOSE (2X325MG) PO PRN (10:26)
[2020-07-18] MEDS ORDERED: atenoloL 50 MG TAB PO SCH (11:30)
[2020-07-18 12:00] VITALS: BP 125/66
[2020-07-18 12:54] LABS: CK-MB VALUE MASS 1.5 NG/ML (<3.6); MB/CK RELATIVE INDEX 4.29 (< OR =4); TROPONIN I 0.06 NG/ML (< 0.10)
--- NOTE | 2020-07-18 14:46 | IPNPDOC ---
Text Note Date of Service The patient was seen on 07/18/20. NOTE SUBJECTIVE: -Hypotensive to SBP 80s overnight while on dilt 30Q6H for RVR --> dilt was dc'd and she was started on digoxin -This AM HR 150s --> spoke with Dr. Marie who recommended dig 0.5mg IV stat and reschedule to 0.125mg PO daily to start tomorrow OBJECTIVE: VITAL SIGNS: Please see below. GENERAL APPEARANCE: Not in apparent distress HEENT: Normocephalic, atraumatic, mucous members moist and pink CARDIOVASCULAR: Irregularly irregular, tachycardic. No murmurs noted LUNGS: Good auscultation bilaterally on room air ABDOMEN: Hypoactive bowel sounds, soft and nontender on palpation MUSCULOSKELETAL: Age of motion intact in all 3 extremities , the left arm is in a sling NEUROLOGICAL: Cranial nerves II-12 are grossly intact. Speech is not dysarthric PSYCHIATRIC: Alert and oriented to person, place and time, able to understand and follow commands LABORATORY DATA: WBC 9.9 Hgb 13.6 platelets 119 Na 143 K 3.9 Cr 0.75 Ferritin 1881 Ddimer at admission was 2599 Fe 36 TIBC 220 Procal 0.07 IMAGING: CTA chest : No PE and no acute pathology with chronic interstitial changes, no effusions, no masses, no GGOs CXR: wnl MICROBIOLOGY: Please see below. BCx NGTD UA/UCx --> not drawn unfortunately, not sure why. 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 PLAN: 1. New onset Afib with RVR: precipitant unclear at this time with no history of cardiac disease, no signs of ischemia, no PE, however with leukocytosis c/f infection driving arrythmia activity but structural disease worth investigating as well. -s/p metop x 3 IV pushes without effect -s/p dilt c/b hypotension -Now on digoxin --> giving 0.5mg IV STAT and planning on 0.125 mg PO daily going forward -Telemetry -s/p 2L NS -f/u BCx -Nursing to collect UA with UCx. Unfortunately she has already had multiple doses of zosyn by now nad leukocytosis has improved and may have missed window to investigate source. Will follow up UA -empiric zosyn for now given +SIRS at presentation. Will plan on giving for 3d -continue heparin gtt, but will closely watch platelets given thrombocytopenia that appears to be chronic -TTE -I am still concerned about covid-19 given the hypoxemia, chest pain, +Ddimer and +ferritin with leukocytosis without PE in a seemingly healthy woman at baseline--> resent covid-19 swab and discussed with nursing about deep sampling Leukocytosis, tachycardia - +SIRS -CXR and CTA without acute cardiopulmonary disease noted -respiratory panel was negative -f/u BCx -f/u UA/UCx -will empirically cover with pip/tazo for now until UA and BCx return, will give for 3d total given lack of data and late UA -I am still concerned about covid-19 given the hypoxemia, chest pain, +Ddimer and +ferritin with leukocytosis without PE in a seemingly healthy woman at baseline--> resent covid-19 swab and discussed with nursing about deep sampling Restless leg syndrome -continue home ropinirole Thrombocytopenia: acute on chronic -will monitor while on heparin gtt DVT prophylaxis with SDCs, TEDs and heparin gtt Disposition: expect >48hr stay VS,Sandor, I+O VS, Lucianae, I+O Laboratory Tests 07/17/20 15:07 07/17/20 15:08 07/17/20 20:24 07/18/20 05:29 Vital Signs Date Time Temp Pulse Resp B/P (MAP) Pulse Ox O2 Delivery O2 Flow Rate FiO2 07/18/20 04:00 2.0 07/18/20 04:00 96.6 149 20 104/69 (81) 96 Nasal Cannula I&O- Last 24 Hours up to 6 AM 07/18/20 06:00 Intake Total 1188 ml Output Total 0 ml Balance 1188 ml TERRA LUTZ MD Jul 18, 2020 08:43
[2020-07-18 16:00] VITALS: BP 125/66
[2020-07-18 19:27] LABS: CK-MB VALUE MASS 1.2 NG/ML (<3.6); MB/CK RELATIVE INDEX 3.64 (< OR =4); TROPONIN I 0.09 NG/ML (< 0.10)
[2020-07-18 20:00] VITALS: BP 131/59
[2020-07-18] MEDS: rOPINIRole 1MG TAB PO SCH (20:43)
[2020-07-18] MEDS: atenoloL 25 MG TAB PO SCH (20:44)
[2020-07-19] VITALS (7 sets, daily range): BP systolic 107–143; BP diastolic 53–67
[2020-07-19 00:59] LABS: CK-MB VALUE MASS 1.3 NG/ML (<3.6); MB/CK RELATIVE INDEX 5.42 (< OR =4); TROPONIN I 0.1 NG/ML (< 0.10)
[2020-07-19] MEDS: PIPERACILLIN/TAZOBACTAM SOD 3.375 GM in D5W MINI-BAG PLUS 50 ML IV SCH ×4 (05:57→23:41)
[2020-07-19 06:11] LABS: HEMATOCRIT 38.1 % (36.0-47.0); HEMOGLOBIN 12.2 g/dl (12.0-15.5); MEAN CORPUSCULAR HEMOGLOBIN 33.4 pg (27.0-33.0); MEAN CORPUSCULAR VOLUME 104.4 fl (80.0-96.0); PLATELET COUNT, AUTOMATED 116 10^3/uL (150-450); RED BLOOD COUNT 3.65 10^6/uL (4.00-5.40); WHITE BLOOD COUNT 8.3 10^3/uL (4.0-10.0)
[2020-07-19 06:34] LABS: BLOOD UREA NITROGEN 14 MG/DL (7-18); CALCIUM LEVEL 7.8 MG/DL (8.8-10.2); CARBON DIOXIDE LEVEL 24 MEQ/L (21-32); CHLORIDE LEVEL 112 MEQ/L (98-107); CREATININE FOR GFR 0.85 MG/DL (0.55-1.30); GLOMERULAR FILTRATION RATE > 60.0 (>32); GLUCOSE, FASTING 107 MG/DL (70-100); POTASSIUM SERUM 4.2 MEQ/L (3.5-5.1); SODIUM LEVEL 143 MEQ/L (136-145)
[2020-07-19] MEDS: HEPARIN DRIP 25,000 UNITS in IV 1 EA IV SCH (06:40)
[2020-07-19] MEDS: ACETAMINOPHEN TAB 650MG DOSE (2X325MG) PO PRN ×2 (08:26→20:07)
[2020-07-19] MEDS: atenoloL 25 MG TAB PO SCH (08:26)
[2020-07-19] MEDS: DIGOXIN INJ 0.5 MG/2 ML AMP (J1160) IV SCH (08:26)
--- NOTE | 2020-07-19 14:31 | IPNPDOC ---
Text Note Date of Service The patient was seen on 07/19/20. NOTE SUBJECTIVE: -Remains in sinus, was actually solomon this morning, dc'd atenolol OBJECTIVE: VITAL SIGNS: Please see below. GENERAL APPEARANCE: Not in apparent distress HEENT: Normocephalic, atraumatic, mucous members moist and pink CARDIOVASCULAR: RRR. No murmurs noted LUNGS: Good auscultation bilaterally on room air ABDOMEN: Hypoactive bowel sounds, soft and nontender on palpation MUSCULOSKELETAL: Age of motion intact in all 3 extremities , the left arm is in a sling NEUROLOGICAL: Cranial nerves II-12 are grossly intact. Speech is not dysarthric PSYCHIATRIC: Alert and oriented to person, place and time, able to understand and follow commands LABORATORY DATA: Reviewed IMAGING: CTA chest : No PE and no acute pathology with chronic interstitial changes, no effusions, no masses, no GGOs CXR: wnl MICROBIOLOGY: Please see below. 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 PLAN: 1. New onset Afib with RVR: precipitant likely infection (UTI) driving arrhythmic activity but structural disease being investigated as well. -s/p dilt c/b hypotension, was started on atenolol and digoxin and reverted to sinus and even became solomon --> atenolol now held. -continue 0.125 mg PO daily digoxin -Telemetry -s/p 2L NS -f/u BCx -f/u UCx. -continue empiric zosyn until UCx results -Discontinue heparin gtt and switch to eliquis 2.5 BID given >80yo and <60kg -telemetry Leukocytosis, tachycardia - +SIRS now with +UA, likely from UTI -CXR and CTA without acute cardiopulmonary disease noted -respiratory panel was negative -f/u BCx -f/u UA/UCx -Continue pip/tazo for now until UCx and BCx return Restless leg syndrome -continue home ropinirole Thrombocytopenia: acute on chronic -monitor daily CBC DVT prophylaxis with SDCs, TEDs and heparin gtt Disposition: expect >48hr stay VS,Fishbone, I+O VS, Fishbone, I+O Laboratory Tests 07/19/20 05:30 Vital Signs Date Time Temp Pulse Resp B/P (MAP) Pulse Ox O2 Delivery O2 Flow Rate FiO2 07/19/20 12:00 98.7 59 18 107/53 (71) 97 Nasal Cannula 2.0 I&O- Last 24 Hours up to 6 AM 07/19/20 06:00 Intake Total 1270 ml Output Total 950 ml Balance 320 ml TERRA LUTZ MD Jul 19, 2020 14:31
[2020-07-19] MEDS: APIXABAN 2.5 MG TAB (ELIQUIS) PO SCH (20:06)
[2020-07-19] MEDS: rOPINIRole 1MG TAB PO SCH (20:06)
--- NOTE | 2020-07-19 23:07 | ECGEPIP ---
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
--- NOTE | 2020-07-19 23:09 | ECGEPIP ---
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
[2020-07-20] VITALS (7 sets, daily range): BP systolic 115–169; BP diastolic 56–90
[2020-07-20] MEDS: PIPERACILLIN/TAZOBACTAM SOD 3.375 GM in D5W MINI-BAG PLUS 50 ML IV SCH ×3 (05:21→17:34)
[2020-07-20] MEDS: ACETAMINOPHEN TAB 650MG DOSE (2X325MG) PO PRN ×2 (05:22→20:13)
[2020-07-20 06:21] LABS: HEMATOCRIT 38.3 % (36.0-47.0); HEMOGLOBIN 12.4 g/dl (12.0-15.5); MEAN CORPUSCULAR HEMOGLOBIN 33.2 pg (27.0-33.0); MEAN CORPUSCULAR HGB CONC 32.4 g/dl (32.0-36.5); MEAN CORPUSCULAR VOLUME 102.7 fl (80.0-96.0); PLATELET COUNT, AUTOMATED 133 10^3/uL (150-450); RED BLOOD COUNT 3.73 10^6/uL (4.00-5.40)
[2020-07-20 06:45] LABS: BLOOD UREA NITROGEN 16 MG/DL (7-18); CALCIUM LEVEL 8.1 MG/DL (8.8-10.2); CARBON DIOXIDE LEVEL 26 MEQ/L (21-32); CHLORIDE LEVEL 111 MEQ/L (98-107); GLOMERULAR FILTRATION RATE > 60.0 (>32); GLUCOSE, FASTING 103 MG/DL (70-100); SODIUM LEVEL 144 MEQ/L (136-145)
[2020-07-20] MEDS: DIGOXIN INJ 0.5 MG/2 ML AMP (J1160) IV SCH (08:47)
[2020-07-20] MEDS: APIXABAN 2.5 MG TAB (ELIQUIS) PO SCH ×2 (08:50→20:13)
[2020-07-20 10:10] LABS: FOLATE 13.8 NG/ML (>5.4)
--- NOTE | 2020-07-20 11:54 | IPNPDOC ---
Text Note Date of Service The patient was seen on 07/20/20. NOTE SUBJECTIVE: -Remains in sinus, doing well. OBJECTIVE: VITAL SIGNS: Please see below. GENERAL APPEARANCE: Not in apparent distress HEENT: Normocephalic, atraumatic, mucous members moist and pink CARDIOVASCULAR: RRR. No murmurs noted LUNGS: Good auscultation bilaterally on room air ABDOMEN: Hypoactive bowel sounds, soft and nontender on palpation MUSCULOSKELETAL: Age of motion intact in all 3 extremities , the left arm is in a sling NEUROLOGICAL: Cranial nerves II-12 are grossly intact. Speech is not dysarthric PSYCHIATRIC: Alert and oriented to person, place and time, able to understand and follow commands LABORATORY DATA: Reviewed. Pending speciation and sensitivities IMAGING: CTA chest : No PE and no acute pathology with chronic interstitial changes, no effusions, no masses, no GGOs CXR: wnl MICROBIOLOGY: Please see below. 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 PLAN: 1. New onset Afib with RVR: precipitant likely infection (UTI) driving arrhythmic activity but structural disease being investigated as well. -s/p dilt c/b hypotension, was started on atenolol and digoxin and reverted to sinus and even became solomon --> atenolol now held. -continue 0.125 mg PO daily digoxin -Telemetry -s/p 2L NS -f/u BCx -f/u UCx. -continue empiric zosyn until UCx results -eliquis 2.5 BID given >80yo and <60kg -telemetry -needs cardiology referral at discharge Leukocytosis, tachycardia - +SIRS now with +UA, likely from UTI -CXR and CTA without acute cardiopulmonary disease noted -respiratory panel was negative -f/u BCx -f/u UA/UCx -Continue pip/tazo for now until UCx and BCx return --> called micro lab --> GNRs --> will result tomorrow AM Restless leg syndrome -continue home ropinirole Thrombocytopenia: acute on chronic -monitor daily CBC DVT prophylaxis with SDCs, TEDs and heparin gtt Disposition: medsurg with tele, with discharge home likely tomorrow with PO abx to complete course VS,Fishbone, I+O VS, Fishbone, I+O Laboratory Tests 07/20/20 06:03 Vital Signs Date Time Temp Pulse Resp B/P (MAP) Pulse Ox O2 Delivery O2 Flow Rate FiO2 07/20/20 08:47 74 07/20/20 08:00 97.8 16 125/67 (86) 94 Room Air 07/19/20 16:00 1.0 I&O- Last 24 Hours up to 6 AM 07/20/20 06:00 Intake Total 730 ml Output Total 303 ml Balance 427 ml TERRA LUTZ MD Jul 20, 2020 09:19
[2020-07-20] MEDS: rOPINIRole 1MG TAB PO SCH (20:13)
[2020-07-21] MEDS: PIPERACILLIN/TAZOBACTAM SOD 3.375 GM in D5W MINI-BAG PLUS 50 ML IV SCH ×4 (00:16→17:17)
[2020-07-21 06:00] VITALS: BP 127/70
[2020-07-21 06:16] LABS: HEMATOCRIT 38.9 % (36.0-47.0); HEMOGLOBIN 12.7 g/dl (12.0-15.5); MEAN CORPUSCULAR HEMOGLOBIN 33.3 pg (27.0-33.0); MEAN CORPUSCULAR HGB CONC 32.6 g/dl (32.0-36.5); MEAN CORPUSCULAR VOLUME 102.1 fl (80.0-96.0); PLATELET COUNT, AUTOMATED 146 10^3/uL (150-450); RED BLOOD COUNT 3.81 10^6/uL (4.00-5.40); WHITE BLOOD COUNT 6.1 10^3/uL (4.0-10.0)
[2020-07-21 06:43] LABS: BLOOD UREA NITROGEN 18 MG/DL (7-18); CALCIUM LEVEL 8.4 MG/DL (8.8-10.2); CARBON DIOXIDE LEVEL 28 MEQ/L (21-32); CHLORIDE LEVEL 111 MEQ/L (98-107); CREATININE FOR GFR 0.86 MG/DL (0.55-1.30); GLOMERULAR FILTRATION RATE > 60.0 (>32); GLUCOSE, FASTING 98 MG/DL (70-100); POTASSIUM SERUM 4.1 MEQ/L (3.5-5.1); SODIUM LEVEL 144 MEQ/L (136-145)
[2020-07-21] MEDS: APIXABAN 2.5 MG TAB (ELIQUIS) PO SCH ×2 (07:39→20:12)
[2020-07-21 14:00] VITALS: BP 169/83
[2020-07-21] MEDS: rOPINIRole 1MG TAB PO SCH (20:12)
[2020-07-21] MEDS: ACETAMINOPHEN TAB 650MG DOSE (2X325MG) PO PRN (20:13)
--- NOTE | 2020-07-21 21:07 | IPNPDOC ---
Subjective Date Seen The patient was seen on 07/21/20. Subjective Chief Complaint/HPI Mrs. Lopez is an 79 year old female with new atrial fibrillation with RVR and UTI. Today, she denies any chest pain, dyspnea, abdominal pain, or dysuria. Pending results from urine culture before discharge home. Objective Physical Examination General Exam: Positive: Alert, Cooperative Eye Exam: Positive: EOMI; Negative: Sclera icteric ENT Exam: Positive: Atraumatic Neck Exam: Positive: Supple Chest Exam: Positive: Clear to auscultation; Negative: Rales, Rhonchi, Wheezing Heart Exam: Positive: Rate Normal, Regular Rhythm Abdomen Exam: Positive: Normal bowel sounds, Soft; Negative: Tenderness Extremity Exam: Negative: Edema Neuro Exam: Positive: Cranial Nerves 3-12 NL Psych Exam: Positive: Mental status NL, Mood NL Assessment /Plan Assessment Mrs. Lopez is an 79 year old female with new atrial fibrillation with RVR and UTI. Atrial fibrillation with RVR has resolved. She requests to follow up with Dr. Woods on discharge. Otherwise pending urine culture results to determine antibiotic choice Plan/VTE VTE Prophylaxis Ordered?: Yes Plan 1. New onset atrial fibrillation with RVR -UTI most likely precipitated event -Now rate controlled -Continue digoxin -Continue Eliquis (2.5mg BID due to age >80yo and weight <60kg) -Follow up with Dr. Woods on discharge 2. UTI -Zosyn -Pending culture results 3. Restless leg syndrome -Continue ropinirole 4. Thrombocytopenia -Monitor 5. DVT ppx -On Eliquis VS, I&O, 24H, Fishbone Vital Signs/I&O Vital Signs Date Time Temp Pulse Resp B/P (MAP) Pulse Ox O2 Delivery O2 Flow Rate FiO2 07/21/20 14:00 97.8 83 16 169/83 (111) 98 Room Air 07/19/20 16:00 1.0 I&O- Last 24 Hours up to 6 AM 07/21/20 06:00 Intake Total 910 ml Output Total 450 ml Balance 460 ml Laboratory Data 24H LABS Laboratory Tests 2 07/21/20 05:45: Nucleated Red Blood Cells % (auto) 0.0, Anion Gap 5L, Glomerular Filtration Rate > 60.0, Calcium Level 8.4L CBC/BMP Laboratory Tests 07/21/20 05:45 Microbiology Microbiology 07/18/20 Urine Culture, Received Pending 07/17/20 Respiratory Virus Panel (PCR) (JONES) - Final, Complete 07/17/20 Blood Culture - Preliminary, Resulted No Growth after 72 hours. All specime... 07/17/20 Blood Culture - Preliminary, Resulted No Growth after 72 hours. All specime... GIULIA CISNEROS DO Jul 21, 2020 21:07
[2020-07-21 22:00] VITALS: BP 147/85
[2020-07-22] MEDS: PIPERACILLIN/TAZOBACTAM SOD 3.375 GM in D5W MINI-BAG PLUS 50 ML IV SCH ×3 (00:19→12:58)
[2020-07-22] MEDS: ACETAMINOPHEN TAB 650MG DOSE (2X325MG) PO PRN (04:12)
[2020-07-22 06:00] VITALS: BP 141/72
[2020-07-22 06:34] LABS: HEMATOCRIT 41.4 % (36.0-47.0); HEMOGLOBIN 13.7 g/dl (12.0-15.5); MEAN CORPUSCULAR HEMOGLOBIN 33.8 pg (27.0-33.0); MEAN CORPUSCULAR HGB CONC 33.1 g/dl (32.0-36.5); MEAN CORPUSCULAR VOLUME 102.2 fl (80.0-96.0); PLATELET COUNT, AUTOMATED 172 10^3/uL (150-450); RED BLOOD COUNT 4.05 10^6/uL (4.00-5.40)
[2020-07-22 07:05] LABS: BLOOD UREA NITROGEN 17 MG/DL (7-18); CALCIUM LEVEL 8.3 MG/DL (8.8-10.2); CARBON DIOXIDE LEVEL 26 MEQ/L (21-32); CHLORIDE LEVEL 111 MEQ/L (98-107); CREATININE FOR GFR 0.79 MG/DL (0.55-1.30); GLOMERULAR FILTRATION RATE > 60.0 (>32); GLUCOSE, FASTING 86 MG/DL (70-100); POTASSIUM SERUM 3.9 MEQ/L (3.5-5.1); SODIUM LEVEL 144 MEQ/L (136-145)
[2020-07-22] MEDS: APIXABAN 2.5 MG TAB (ELIQUIS) PO SCH (07:57)
[2020-07-22] MEDS ORDERED: ELIQ2.5T PO (10:06)
[2020-07-22] MEDS ORDERED: LEVO750T14 PO (10:06)
[2020-07-22] MEDS ORDERED: BACT800T5 PO (10:58)
--- NOTE | 2020-07-22 11:58 | ECHO ---
DATE OF PROCEDURE: 07/18/2020 Age: 79 Gender: Female Height: 60 inches Weight: 125 pounds REFERRING PHYSICIAN: Janice Pinzon M.D. INDICATION: Atrial fibrillation, unspecified. MEASUREMENTS: 2D Measurements: Aortic root 3.1 cm Proximal ascending aorta 2.8 cm Left atrium 3.8 cm Intraventricular septum 1.03 cm Posterior wall 0.94 cm Left ventricle diastole 4.1 cm Left ventricle systole 2.2 cm Inferior vena cava 1.95 cm Doppler Measurements: Very mild aortic regurgitation No aortic stenosis Aortic valve velocity 140 cm/s LVOT velocity 121 cm/s LVOT VTI 22.3 cm Very mild mitral regurgitation No mitral stenosis Mitral E velocity 69.6 cm/s Mitral A velocity 70.6 cm/s Mitral deceleration time 214 msec Moderate tricuspid regurgitation Estimated right ventricular systolic pressure 41 mmHg Estimated right atrial pressure 5 mmHg Mild pulmonic regurgitation MITRAL ANNULAR TISSUE DOPPLER E prime septal 5.7 cm/s, E prime lateral 6.4 cm/s DESCRIPTION: Rhythm was sinus. Image quality was fair. No pericardial effusion. This was a 2D, M-mode, color flow Doppler, and pulsed wave Doppler examination including mitral annular tissue Doppler. CONCLUSIONS: * Normal left ventricle internal dimensions and wall thickness. Normal regional LV wall motion and wall thickening. Normal LV systolic function. LVEF 70% by visual estimate. Grade 1 LV diastolic dysfunction. * Mild left atrial dilatation. * Very mild aortic valve sclerosis of a 3-cuspid aortic valve. Very mild aortic regurgitation. * Mild mitral annular calcification. Very mild mitral regurgitation. No mitral stenosis. * Suggestive of moderate elevation of estimated right ventricle systolic pressure. Moderate tricuspid regurgitation. * Moderately technically difficult echocardiogram. [facility]
--- NOTE | 2020-07-22 23:34 | DS.PDOC ---
Discharge Summary General Date of Admission Jul 17, 2020 at 17:41 Date of Discharge Jul 22, 2020 Attending Physician: GIULIA CISNEROS DO Discharge Summary PROCEDURES PERFORMED DURING STAY: None ADMITTING DIAGNOSES: 1. New onset atrial fibrillation with rapid ventricular response 2. UTI 3. Restless leg syndrome DISCHARGE DIAGNOSES: 1. New onset atrial fibrillation with rapid ventricular response 2. E.coli UTI 3. Restless leg syndrome COMPLICATIONS/CHIEF COMPLAINT: Rapid Afib,Sob. HISTORY OF PRESENT ILLNESS: Mrs. Lopez is an 79 year old female with overactive bladder who presented to the ED for chest pain that worsens with deep breathing. At room air, she was saturating at 95%, but on exertion, she was saturating at 88%. While in the ED, she developed atrial fibrillation with rapid ventricular response. It did not respond to metoprolol IV pushes x3. It did respond to diltiazem IV 15mg. Due to the leukocytosis, it was suspected an infectious process was the cause. Patient was started on Zosyn while infection workup was in progress. HOSPITAL COURSE: During her admission, her UA returned positive for possible UTI. Urine cultures were pending. Despite the diltiazem, she remained in RVR. Diltiazem was discontinued for a trial of digoxin and atenolol. She eventually converted to sinus rhythm. She was started on anticoagulation with Eliquis. Urine culture returned with E.coli that was pansensitive. She had about 4 days of Zosyn. Will continue antibiotic course with PO Bactrim for another 3 days. Today, she felt well. She denied any fever, chest pain, dyspnea, or abdominal pain. She felt ready for home and was subsequently discharged. DISCHARGE MEDICATIONS: Please see below. ALLERGIES: Please see below. PHYSICAL EXAMINATION ON DISCHARGE: VITAL SIGNS: Please see below. GENERAL: Comfortable, in no apparent distress HEENT: Head normocephalic, atraumatic, EOMI, sclera clear NECK: Supple CARDIOVASCULAR EXAMINATION: Regular rate and rhythm RESPIRATORY EXAMINATION: Lungs clear to auscultation bilaterally ABDOMINAL EXAMINATION: Soft, non-tender, normal bowel sounds EXTREMITIES: No pitting edema bilaterally SKIN: Warm and dry NEUROLOGICAL EXAMINATION: CN 3-12 grossly intact PSYCHIATRIC EXAMINATION: Normal mood and affect LABORATORY DATA: Please see below. IMAGING: (radiology interpretation) CT angio of chest 1. No evidence for pulmonary embolus. 2. Chronic interstitial changes with mild superimposed basilar atelectasis. PROGNOSIS: Good ACTIVITY: As tolerated. DIET: As tolerated DISCHARGE PLAN: Home DISPOSITION: 01 Home, Self-Care. DISCHARGE INSTRUCTIONS: 1. Follow up with your PCP within 1 week 2. Follow up with Cardiology, Dr. Woods, in 1 week 3. Continue antibiotics to completion DISCHARGE CONDITION: Stable. Total time spent on discharge planning, discharge summary, and medication reconciliation: 45 minutes Vital Signs/I&Os Vital Signs Date Time Temp Pulse Resp B/P (MAP) Pulse Ox O2 Delivery O2 Flow Rate FiO2 07/22/20 06:00 97.9 68 19 141/72 (95) 98 Room Air 07/19/20 16:00 1.0 I&O- Last 24 Hours up to 6 AM 07/22/20 06:00 Intake Total 1290 ml Output Total 1000 ml Balance 290 ml Laboratory Data Labs 24H Laboratory Tests 2 07/22/20 06:12: Nucleated Red Blood Cells % (auto) 0.0, Anion Gap 7L, Glomerular Filtration Rate > 60.0, Calcium Level 8.3L CBC/BMP Laboratory Tests 07/22/20 06:12 Microbiology Microbiology 07/18/20 Urine Culture - Final, Complete Escherichia Coli 07/17/20 Respiratory Virus Panel (PCR) (JONES) - Final, Complete 07/17/20 Blood Culture - Final, Complete NO GROWTH AFTER 5 DAYS 07/17/20 Blood Culture - Final, Complete NO GROWTH AFTER 5 DAYS Discharge Medications Scheduled Apixaban (Eliquis) 2.5 Mg Tablet, 2.5 MG PO BID Ascorbic Acid (Vitamin C) 100 Mg Tablet, 100 MG PO DAILY, (Reported) Atorvastatin Calcium (Atorvastatin Calcium) 10 Mg Tablet, 10 MG PO 4XWK, (Reported) AT BEDTIME MONDAY, MONDAY, MONDAY, MONDAY Calcium Citrate/Vitamin D3 (Citracal + D Maximum Caplet) 1 Each Tablet, 1 TAB PO DAILY, (Reported) Dorzolamide HCl/Timolol Maleat (Cosopt Eye Drops) 10 Ml Drops, 1 DROP OU BID, (Reported) Glucosamine/Chondr Boss A Sod (Cidaflex Tablet) 1 Each Tablet, 1 TAB PO DAILY, (Reported) Latanoprost (Xalatan) 0.005% 2.5ML Drops, 1 DROP OU QHS, (Reported) Multivitamin,Therapeutic (Thera-Tabs) 1 Each Tablet, 1 TAB PO DAILY, (Reported) [facility]-3S/Dha/Epa/Fish Oil/D3 (Fish Oil-Vit D3 Softgel) 1 Each Capsule, 1 CAP PO DAILY, (Reported) Ropinirole HCl (Ropinirole HCl) 2 Mg Tablet, 2 MG PO QPM, (Reported) Sulfamethoxazole/Trimethoprim (Bactrim Ds Tablet) 1 Each Tablet, 1 TAB PO BID Ubidecarenone (Co Q-10) 200 Mg Capsule, 200 MG PO QPM, (Reported) Allergies Coded Allergies: No Known Allergies (Unverified , 03/10/19) GIULIA CISNEROS DO Jul 22, 2020 23:34
== END 2020-07-22 15:39 | disposition home or self-care (01) | DRG 690 ==
LOC: EDBD 14:35 → M ED 14:35 → M ED INP 17:41 → ENRESERV 18:34 → M MSPAV 21:35 → M PCU 22:00 → M MSPAV 07-20 16:49
PROVIDERS: ADMIT Internal Medicine; ATTEND Internal Medicine
DX: N39.0 Urinary tract infection, site not specified (principal); I48.91 Unspecified atrial fibrillation; D69.6 Thrombocytopenia, unspecified; B96.20 Unspecified Escherichia coli [E. coli] as the cause of diseases classified elsewhere; G25.81 Restless legs syndrome; Z79.899 Other long term (current) drug therapy; R00.1 Bradycardia, unspecified

== ENCOUNTER → 2020-08-14 | Outpatient (REF) | payer MEDICARE ==
[~2020-08-14] MED LIST changes: +BACT800T5 PO; +ELIQ2.5T PO; +LEVO750T14 PO; +THERTAB52 PO
[2020-08-14 13:09] LABS: ALBUMIN 3.7 GM/DL (3.2-5.2); ALT/SGPT 32 U/L (12-78); BILIRUBIN,TOTAL 1.1 MG/DL (0.2-1.0); BLOOD UREA NITROGEN 21 MG/DL (7-18); CALCIUM LEVEL 9.4 MG/DL (8.8-10.2); CARBON DIOXIDE LEVEL 32 MEQ/L (21-32); CHLORIDE LEVEL 105 MEQ/L (98-107); CHOLESTEROL LEVEL 228 MG/DL (<200); CHOLESTEROL RISK RATIO 2.814 (<5); CREATININE FOR GFR 0.89 MG/DL (0.55-1.30); GLOMERULAR FILTRATION RATE > 60.0 (>32); GLUCOSE, FASTING 99 MG/DL (70-100); HDL CHOLESTEROL 81 MG/DL (>40); LDL CHOLESTEROL 128 MG/DL (<100); NON-HDL-C 147 MG/DL; POTASSIUM SERUM 4.5 MEQ/L (3.5-5.1); SODIUM LEVEL 141 MEQ/L (136-145); TOTAL PROTEIN 6.9 GM/DL (6.4-8.2); TRIGLYCERIDES LEVEL 95 MG/DL (<150)
== END ==
LOC: M LAB REF 11:13
PROVIDERS: ATTEND Family Medicine
DX: R73.01 Impaired fasting glucose (principal); R74.8 Abnormal levels of other serum enzymes; E07.9 Disorder of thyroid, unspecified

== ENCOUNTER → 2021-03-22 | Outpatient (CLI) | payer MEDICARE ==
--- NOTE | 2021-03-22 08:57 | REPMRS ---
Patient History The patient states she has not had a clinical breast exam in over a year. Family history of pancreatic cancer and colorectal cancer at age 59 in mother. Patient states no breast complaints today. Patient has signed MRS History Sheet. Digital Woman Screen Mammo: March 22, 2021 - Exam #: [id number] Bilateral CC and MLO view(s) were taken. Technologist: Cherry Sher, Technologist Prior study comparison: February 05, 2020, bilateral digital woman screen mammo performed at [facility]. December 13, 2018, bilateral digital woman screen mammo performed at [facility]. November 07, 2017, digital woman screen mammo performed at [facility]. October 20, 2015, digital woman screen mammo performed at [facility]. FINDINGS: There are scattered fibroglandular densities. The Volpara volumetric breast density category is:B. There has been no change in the appearance of the mammogram from the prior studies. There is a mild amount of scattered fibroglandular density which is fairly symmetric. There is no interval development of dominant mass, architectural distortion, or grouped microcalcification suggestive of malignancy. 3-D tomosynthesis shows no additional findings. Assessment: BI-RADS/ACR category 1 mammogram. Negative Mammogram. Recommendation Routine screening mammogram of both breasts in 1 year (for women over age 40). This patient's [facility] Lifetime Breast Cancer Risk is estimated at 1.5 %. This mammogram was interpreted with the aid of an FDA-approved computer-aided dectection system. Electronically Signed By: Fracisco Kat MD 03/22/21 0857
== END ==
LOC: M WHC 07:55
PROVIDERS: ATTEND Family Medicine
DX: Z12.31 Encounter for screening mammogram for malignant neoplasm of breast (principal); Z80.8 Family history of malignant neoplasm of other organs or systems

== ENCOUNTER → 2021-04-26 | Outpatient (CLI) | payer MEDICARE ==
--- NOTE | 2021-04-26 09:26 | REP ---
INDICATION: LT KNEE PAIN. COMPARISON: None. TECHNIQUE: [place] and weightbearing AP, and lateral views of the left knee. FINDINGS: Early advanced tricompartmental osteoarthritic degenerative changes include cortical irregularities, osteophytosis, joint space narrowing, and chondrocalcinosis. Lateral view suggests small effusion. No acute fracture or dislocation identified. IMPRESSION: Early advanced tricompartmental osteoarthritic degenerative changes. <Electronically signed by Subhash Irizarry > 04/26/21 [id number]
== END ==
LOC: M SOG 09:09
PROVIDERS: ATTEND Orthopaedic Surgery Adult Reconstructive Orthopaedic Surgery
DX: M25.562 Pain in left knee (principal); M17.12 Unilateral primary osteoarthritis, left knee

== ENCOUNTER → 2021-05-04 | Outpatient (CLI) | payer MEDICARE ==
--- NOTE | 2021-05-04 15:30 | REP ---
INDICATION: ASSESS FOR MENISCAL TEAR. COMPARISON: There are no high field strength MRI examinations for comparison. TECHNIQUE: Sagittal spin-echo proton density, T2 STIR and T2 FLASH. Coronal spin-echo proton density and fat suppressed proton density. Axial fat suppressed proton density. FINDINGS: There is grade 3 signal change seen in the posterior horn of the medial meniscus. The anterior horn is within normal limits. There is marked truncation of the anterior horn of the lateral meniscus. Subtle grade 3 signal changes are seen in the posterior horn. The anterior and posterior cruciate ligaments are intact. The quadriceps and patellar tendons are intact. The medial and lateral collateral ligaments are intact. The medial and lateral patellar retinacula are intact. There is a joint effusion and a 7.6 x 1.9 x 3.7 cm sized somewhat complex Madrigal's cyst. This has not changed significantly compared to the prior exam. There is tricompartmental marginal osteophytosis and tricompartmental narrowing with advanced cartilaginous thinning and irregularity involving all 3 compartments. There is mild patchy T2 hyper signal seen in the distal femoral metaphysis particularly the medial femoral condyle and slightly in the proximal medial tibial metaphysis. There is superior parapatellar plica. IMPRESSION: 1. There is a bucket-handle tear of the lateral meniscus. 2. The posterior horn of the medial meniscus is torn. 3. The medial collateral ligament is sprained but intact. 4. Femoral condylar and tibial marrow edema as described above consistent with recent trauma. 5. There is a joint effusion and a large Madrigal's cyst as described above. 6. Tricompartmental degenerative changes as described above. 7. Other findings as described above. <Electronically signed by Duy Antonio > 05/04/21 [id number]
== END ==
LOC: M PLAIMG 14:34
PROVIDERS: ATTEND Orthopaedic Surgery Adult Reconstructive Orthopaedic Surgery
DX: S83.252A Bucket-handle tear of lateral meniscus, current injury, left knee, initial encounter (principal); S83.412A Sprain of medial collateral ligament of left knee, initial encounter; M25.462 Effusion, left knee; M71.22 Synovial cyst of popliteal space [Baker], left knee; M11.161 Familial chondrocalcinosis, right knee; X58.XXXA Exposure to other specified factors, initial encounter; Y92.9 Unspecified place or not applicable; Y99.9 Unspecified external cause status

== ENCOUNTER → 2021-06-19 | Outpatient (CLI) | payer MEDICARE | LOC: M LABSMTC 09:17 | PROVIDERS: ATTEND Anesthesiology | DX: Z01.818 Encounter for other preprocedural examination (principal); Z11.52 Encounter for screening for COVID-19 ==

== ENCOUNTER 2021-06-22 09:23 | Day surgery (SDC) | payer MEDICARE ==
[~2021-06-22] VITALS: Ht 152.4 cm; Wt 56.2 kg
[~2021-06-22 09:23] MED LIST changes: +ACETAMINOPHEN 500 MG TAB PO ONE; +CelecoXIB 400 MG CAP PO ONE; +GABAPENTIN 300 MG CAP PO ONE; +LR 1,000 ML IV ONE; +ONDANSETRON 4MG/2ML VIAL IV ONE
[2021-06-22] MEDS ORDERED: EPINEPHrine 1MG/ML INJ 30ML MD-VIAL As Ordered ONE (11:08)
[2021-06-22] MEDS ORDERED: BUPIVACAINE/EPIN 0.5% 30 ML VIAL As Ordered ONE (11:08)
[2021-06-22] MEDS ORDERED: METOCLOPRAMIDE INJ 10MG/2ML VIAL (J2765 PER 1) As Ordered ONE (11:24)
[2021-06-22] MEDS ORDERED: fentaNYL 100 MCG/2 ML INJECTION As Ordered ONE (11:24)
[2021-06-22] MEDS ORDERED: dexameTHASONE 4 MG/ML 1ML VIAL (J1100 PER 1MG) As Ordered ONE (11:24)
[2021-06-22] MEDS ORDERED: ONDANSETRON 4MG/2ML VIAL As Ordered ONE (11:24)
[2021-06-22] MEDS ORDERED: propofoL 200 MG/20 ML VIAL As Ordered ONE (11:24)
[2021-06-22] MEDS ORDERED: MIDAZOLAM INJ 2MG/2ML VIAL (J2250 PER 1MG) As Ordered ONE (11:24)
[2021-06-22] MEDS ORDERED: LIDOCAINE 2% 100MG/5ML SDV (FOR ANES.) As Ordered ONE (11:24)
[2021-06-22] MEDS ORDERED: METOCLOPRAMIDE INJ 10MG/2ML VIAL (J2765 PER 1) IV PRN (13:00)
[2021-06-22] MEDS ORDERED: fentaNYL 100 MCG/2 ML INJECTION IV PRN (13:00)
[2021-06-22] MEDS ORDERED: ACETAMINOPHEN TAB 650MG DOSE (2X325MG) PO PRN (13:00)
[2021-06-22] MEDS ORDERED: ONDANSETRON 4MG/2ML VIAL IV PRN (13:00)
[2021-06-22] MEDS ORDERED: LR 1,000 ML IV SCH (13:00)
[2021-06-22 15:40] VITALS: BP 139/64
== END 2021-06-22 15:50 | disposition home or self-care (01) ==
LOC: M SDC 09:23
PROVIDERS: ATTEND Orthopaedic Surgery Adult Reconstructive Orthopaedic Surgery
DX: M23.262 Derangement of other lateral meniscus due to old tear or injury, left knee (principal); M23.004 Cystic meniscus, unspecified medial meniscus, left knee; Z79.01 Long term (current) use of anticoagulants; I48.91 Unspecified atrial fibrillation; Z87.891 Personal history of nicotine dependence; Z79.899 Other long term (current) drug therapy; E78.5 Hyperlipidemia, unspecified
CPT/HCPCS: 29880; J1100; J2250; J2405; J2765; J3010

== ENCOUNTER 2021-07-22 13:43 | Outpatient (RCR) | payer MEDICARE ==
[~2021-07-22 13:43] MED LIST changes: -ACETAMINOPHEN 500 MG TAB PO ONE; -CelecoXIB 400 MG CAP PO ONE; -GABAPENTIN 300 MG CAP PO ONE; -LR 1,000 ML IV ONE; -ONDANSETRON 4MG/2ML VIAL IV ONE
== END 2021-07-23 ==
LOC: M PT 13:43
PROVIDERS: ATTEND Orthopaedic Surgery Adult Reconstructive Orthopaedic Surgery
DX: Z98.890 Other specified postprocedural states (principal); M25.562 Pain in left knee

== ENCOUNTER 2021-08-10 10:54 | Outpatient (RCR) | payer MEDICARE | END 2021-08-23 | LOC: M PT 10:54 | PROVIDERS: ATTEND Orthopaedic Surgery Adult Reconstructive Orthopaedic Surgery | DX: Z98.890 Other specified postprocedural states (principal) ==

== ENCOUNTER → 2021-12-13 | Outpatient (REF) | payer MEDICARE ==
[2021-12-13 13:31] LABS: FOLATE 17.2 NG/ML
== END ==
LOC: M LAB REF 12:33
PROVIDERS: ATTEND Family Medicine
DX: G25.81 Restless legs syndrome (principal)

== ENCOUNTER → 2022-03-30 | Outpatient (CLI) | payer MEDICARE | LOC: M WHC 13:21 | PROVIDERS: ATTEND Family Medicine | DX: Z12.31 Encounter for screening mammogram for malignant neoplasm of breast (principal) ==

== ENCOUNTER → 2022-06-08 | Outpatient (REF) | payer MEDICARE ==
[2022-06-09 22:14] LABS: FOLATE 9.9 NG/ML (>5.4)
== END ==
LOC: M LAB REF 16:08
PROVIDERS: ATTEND Family Medicine
DX: R71.8 Other abnormality of red blood cells (principal)

== ENCOUNTER → 2022-06-30 | Outpatient (CLI) | payer MEDICARE | LOC: M SOG 08:16 | PROVIDERS: ATTEND Orthopaedic Surgery Adult Reconstructive Orthopaedic Surgery | DX: M94.261 Chondromalacia, right knee (principal); M17.0 Bilateral primary osteoarthritis of knee ==

== ENCOUNTER → 2023-02-22 | Outpatient (CLI) | payer MEDICARE ==
[~2023-02-22] MED LIST changes: -COSO1SOL3 OU; +DORZ10DR10 OU; -ROPI2TAB3 PO; +ROPI2TAB46 PO
[2023-02-22 10:44] LABS: HEMATOCRIT 48.7 % (36.0-47.0); HEMOGLOBIN 15.9 g/dl (12.0-15.5); MEAN CORPUSCULAR HEMOGLOBIN 34.3 pg (27.0-33.0); MEAN CORPUSCULAR HGB CONC 32.6 g/dl (32.0-36.5); MEAN CORPUSCULAR VOLUME 105.2 fl (80.0-96.0); PLATELET COUNT, AUTOMATED 163 10^3/uL (150-450); RED BLOOD COUNT 4.63 10^6/uL (4.00-5.40); WHITE BLOOD COUNT 5.7 10^3/uL (4.0-10.0)
[2023-02-22 11:01] LABS: ERYTHROCYTE SEDIMENTATION RATE 5 mm/hr (0-30)
[2023-02-22 11:02] LABS: INR 1.04; PROTHROMBIN TIME 13.8 SECONDS (12.5-14.5)
[2023-02-22 11:11] LABS: ALBUMIN 4.1 G/DL (3.2-5.2); ALKALINE PHOSPHATASE 79 U/L (46-116); ALT/SGPT 25 U/L (7.0-40); AST/SGOT 21 U/L (<34); BILIRUBIN,TOTAL 1.8 MG/DL (0.3-1.2); BLOOD UREA NITROGEN 19 MG/DL (9-23); CALCIUM LEVEL 9.5 MG/DL (8.3-10.6); CARBON DIOXIDE LEVEL 30 MMOL/L (20-31); CHLORIDE LEVEL 105 MMOL/L (98-107); CREATININE FOR GFR 0.78 MG/DL (0.55-1.30); GLOMERULAR FILTRATION RATE > 60.0 (>32); GLUCOSE, FASTING 104 MG/DL (74-106); POTASSIUM SERUM 4.4 MMOL/L (3.5-5.1); SODIUM LEVEL 143 MMOL/L (136-145); TOTAL PROTEIN 6.9 G/DL (5.7-8.2)
== END ==
LOC: M RAD 09:16
PROVIDERS: ATTEND Orthopaedic Surgery
DX: Z01.818 Encounter for other preprocedural examination (principal); M17.12 Unilateral primary osteoarthritis, left knee

== ENCOUNTER → 2023-11-22 | Outpatient (CLI) | payer MEDICARE ==
[~2023-11-22] MED LIST changes: -OXYB5TAB10 PO; +OXYB5TAB14 PO
== END ==
LOC: M WHC 12:57
PROVIDERS: ATTEND Family Medicine
DX: Z12.31 Encounter for screening mammogram for malignant neoplasm of breast (principal)

== ENCOUNTER → 2024-07-01 | Outpatient (REF) | payer MEDICARE ==
[~2024-07-01] MED LIST changes: -LEVO750T14 PO; +LEVO75TAB PO
== END ==
LOC: M LAB REF 16:34
PROVIDERS: ATTEND Family Medicine
DX: N39.0 Urinary tract infection, site not specified (principal)

== ENCOUNTER → 2025-06-10 | Outpatient (REF) | payer MEDICARE | LOC: M LAB REF 14:56 | PROVIDERS: ATTEND Family Medicine | DX: R35.0 Frequency of micturition (principal); R32 Unspecified urinary incontinence ==